=== PATIENT | female | born 1940 | race Caucasian/White ===

== ENCOUNTER → 2017-10-02 14:52 | Outpatient (CLI) | payer MEDICARE, SELFPAY | PROVIDERS: Family Provider Family Medicine; PCP Family Medicine; Visit Provider Family Medicine | DX: L97.309 Non-pressure chronic ulcer of unspecified ankle with unspecified severity (principal) | CPT/HCPCS: 87070; 87075; 87205 ==

== ENCOUNTER → 2017-10-02 15:50 | Outpatient (CLI) | payer MEDICARE, SELFPAY ==
[2017-10-02 17:05] LABS: Add Manual Diff / Slide Review NO; Basophils Percent Auto 0.6 % (0-2); Eosinophils Percent Auto 1.3 % (2-4); Hematocrit 34.8 % (36-46); Hemoglobin 11.6 g/dL (12.0-16.0); Lymphocytes Percent Auto 19.1 % (25-40); Mean Corpuscular HGB Conc 33.4 % (30-36); Mean Corpuscular Hemoglobin 29.9 PG (26-34); Mean Corpuscular Volume 89.6 fL (80-100); Monocytes Percent Auto 6.9 % (3-14); Neutrophils Absolute Auto 5500 /uL (3000-5900); Neutrophils Percent Auto 72.1 % (50-75); Platelet Count 217 X10^3/uL (150-400); Red Blood Cell Count 3.89 X10^6/uL (4.0-5.2); Red Cell Distribution Width 13.9 % (11.6-14.8); White Blood Cell Count 7.6 X10^3/uL (4.5-11.0)
[2017-10-02 17:13] LABS: Alanine Aminotransferase 27 IU/L (9-52); Albumin 4.1 g/dL (3.5-5.0); Albumin Globulin Ratio 1.4 (1.0-2.8); Alkaline Phosphatase 62 U/L (38-126); Aspartate Aminotransferase 21 IU/L (14-36); BUN Creatinine Ratio 10.8 (6-22); Bilirubin Total 0.4 mg/dL (0.2-1.3); Blood Urea Nitrogen 14 mg/dL (7-17); Calcium 9.4 mg/dL (8.4-10.2); Carbon Dioxide 29 mmol/L (22-32); Chloride 99 mmol/L (98-107); Estimated Glomerular Filt Rate 39.6 mL/min (>60); Globulin 2.9 g/dL (1.7-4.1); Glucose 114 mg/dL (80-110); HEMOLYSIS < 15 (0-50); Potassium 4.6 mmol/L (3.4-5.1); Sodium 137 mmol/L (137-145)
[2017-10-02 17:59] LABS: Thyroid Stimulating Hormone 1.41 uIU/mL (0.47-4.68)
== END ==
PROVIDERS: Family Provider Family Medicine; PCP Family Medicine; Visit Provider Family Medicine
DX: R60.9 Edema, unspecified (principal)
CPT/HCPCS: 36415; 80053; 84443; 85025; 87070; 87077; 87147; 87186; 87205

== ENCOUNTER → 2017-12-03 11:49 | Outpatient (CLI) | payer MEDICARE, SELFPAY ==
[2017-12-03 12:22] LABS: Add Manual Diff / Slide Review NO; Basophils Percent Auto 0.5 % (0-2); Lymphocytes Percent Auto 16.6 % (25-40); Mean Corpuscular HGB Conc 34.3 % (30-36); Mean Corpuscular Hemoglobin 29.8 PG (26-34); Mean Corpuscular Volume 86.9 fL (80-100); Monocytes Percent Auto 6.3 % (3-14); Neutrophils Absolute Auto 6100 /uL (3000-5900); Neutrophils Percent Auto 74.6 % (50-75); Platelet Count 219 X10^3/uL (150-400); Red Blood Cell Count 4.03 X10^6/uL (4.0-5.2); Red Cell Distribution Width 13.2 % (11.6-14.8); White Blood Cell Count 8.2 X10^3/uL (4.5-11.0)
[2017-12-03 12:27] LABS: Bacteria Urine None Seen
[2017-12-03 12:34] LABS: Alanine Aminotransferase 28 IU/L (9-52); Albumin 4.3 g/dL (3.5-5.0); Albumin Globulin Ratio 1.5 (1.0-2.8); Alkaline Phosphatase 52 U/L (38-126); Aspartate Aminotransferase 30 IU/L (14-36); Bilirubin Total 0.5 mg/dL (0.2-1.3); Blood Urea Nitrogen 21 mg/dL (7-17); Calcium 9.5 mg/dL (8.4-10.2); Carbon Dioxide 35 mmol/L (22-32); Chloride 93 mmol/L (98-107); Cholesterol 211 mg/dL (140-199); Estimated Glomerular Filt Rate 33.6 mL/min (>60); Globulin 2.8 g/dL (1.7-4.1); Glucose 91 mg/dL (80-110); HDL Cholesterol 48 mg/dL (40-60); HEMOLYSIS < 15 (0-50); LDL Cholesterol Calculated 129 mg/dL (<100); Potassium 4.2 mmol/L (3.4-5.1); Sodium 137 mmol/L (137-145); Total Protein 7.1 g/dL (6.3-8.2); Triglycerides 172 mg/dL (35-150)
[2017-12-03 12:38] LABS: Hemoglobin A1C% w Est Avg Glu 5.4 % (4.0-6.0)
[2017-12-03 12:40] LABS: Transferrin 242 mg/dL (206-381)
[2017-12-03 12:43] LABS: Appearance Urine UA CLEAR; Bilirubin Urine UA NEGATIVE (NEGATIVE); Color Urine UA YELLOW; Glucose Urine UA NEGATIVE (Normal); Ketones Urine UA NEGATIVE (NEGATIVE); Leukocyte Esterase Urine UA 2+ (NEGATIVE); Nitrite Urine UA Negative (Negative); Occult Blood Urine UA TRACE-INTACT (Negative); Protein Urine UA NEGATIVE (Negative); Specific Gravity Urine UA <=1.005 (1.000-1.035); Urobilinogen Urine UA 0.2 E.U./dL (0.2)
[2017-12-03 13:02] LABS: Culture Indicated Urine Specimen Cultured; RBC Urine None Seen (0-5/HPF); Squamous Epithelial Cell Urine 1-5 /HPF; WBC Urine 1-5/HPF (0-5/HPF)
[2017-12-03 13:03] LABS: Thyroid Stimulating Hormone 1.18 uIU/mL (0.47-4.68)
== END ==
PROVIDERS: Family Provider Family Medicine; PCP Family Medicine; Visit Provider Orthopaedic Surgery
DX: Z01.818 Encounter for other preprocedural examination (principal); I10 Essential (primary) hypertension; E78.5 Hyperlipidemia, unspecified
CPT/HCPCS: 36415; 80053; 80061; 81001; 83036; 84443; 84466; 85025; 87086; 93005; 93010

== ENCOUNTER 2017-12-13 14:10 | Inpatient (IN) | payer MEDICARE, SELFPAY ==
[2017-12-05 13:53] VITALS: BMI 27.0
[2017-12-12] VITALS (12 sets, daily range): BP systolic 132–213; BP diastolic 76–104; PULSE 65–101; RESP 14–21; TEMP 36.1–36.8; O2SAT 92–100; BMI 27.0
--- NOTE | 2017-12-12 07:08 | DI.RAD.S_ITS ---
PROCEDURE: XR KNEE RT 1TO2V INDICATIONS: prosthesis placement TECHNIQUE: 2 view(s) of the knee acquired. COMPARISON: None. FINDINGS: Bones: Patient is status post knee joint arthroplasty. Hardware components are in expected positions. Visualized bony structures are intact. Soft tissues: Overlying postoperative changes are noted. IMPRESSION: Expected postsurgical change for right knee arthroplasty. Dictated by: Mikki Alfonso MD, PhD on 12/12/2017 at 10:08 Approved by: Mikki Alfonso MD, PhD on 12/12/2017 at 10:09
[2017-12-12] MEDS: LACTATED RINGERS 1,000 ML 42 ML IV (07:30)
[2017-12-12] MEDS: ACETAMINOPHEN 325 MG TABLET 975 MG PO ×3 (07:43→21:30)
--- NOTE | 2017-12-12 07:49 | PM.PREOP ---
Pre-operative Note Interval Note Pre-op Check: Yes History & Physical Reviewed by Physician and Yes Exam Performed Changes: No
--- NOTE | 2017-12-12 07:51 | P.OP_ITS ---
Operative Date/Time/Diagnoses Date of procedure: 12/12/17 Time of procedure: 09:40 Pre-op diagnosis: Right total knee replacement Post-op diagnosis: same Procedure & Clinicians Procedure: Right total knee replacement Same procedure as scheduled: Yes Indications: The patient has had progressively worsening right knee pain with radiographic changes consistent with arthritis. Non-operative management has failed and the patient has requested total knee replacement. The risks, benefits and alternatives to surgery were discussed with the patient prior to proceeding. Risks discussed included, but were not limited to, failure to relieve pain, stiffness, infection, nerve damage, deep venous thrombosis, pulmonary embolism, stroke, coma, heart attack, permanent paralysis and , as well as the potential need for eventual revision of the prosthetic. Surgeon: Anand Melvin Grinder Machine Setter: Carolyne Dewey Click Yes if Unassisted: No Anesthesia Type: Spinal, Sedation and Local Operative Notes Findings: Significant tricompartmental osteoarthritis. Closure Type: primary Specimen(s): none sent Implants & Drains: Implants used in this procedure were manufactured by the [employer] and included the BCS II Journey total knee replacement with a size 5 right cobalt chromium femur, size 3 right non porous Journey tibial base plate, a 11 mm cross-linked polyethylene tibial insert and a 32 mm oval alfredo II patella. Applied: implant(s) Estimated Blood Loss (mL): 30 Blood products transfused: none Tourniquet time (min): 55 Procedure in detail: The patient was seen in the pre-operative area, where the patient identified the right knee as the operative site and this was marked with my initials. The patient received pre-operative antibiotics, and was taken to the operating room and placed on the operative table in the supine position. After satisfactory anesthesia, a brand marketing specialist out was performed. The right leg was encircled with a tourniquet about the proximal thigh, and the leg was prepared from the toes to the tourniquet with ChloroPrep in the usual fashion and draped through sterile drapes. The leg was elevated and exsanguinated with Eschmark bandage and the tourniquet inflated to 250 mmHg pressure. The knee was approached through an approximately 15 cm incision centered over the patella and carried into the knee through a medial parapatellar arthrotomy. The anterior osteophytes and soft tissues were removed. The rotational landmarks of July's line and the transepicondylar axis were marked on the femur with electrocautery, and intramedullary guide holes for the femur and tibia were created. The distal femoral cut was made in 6 degrees of valgus using the intramedullary guide at the primary cut setting. The proximal tibial cut was then made using the intramedullary guide, taking 9 mm of bone off the less involved side. The extension gap was checked and the rotation of the femoral component confirmed with the gap balancing system. The anterior, posterior and chamfer cuts were then made. The posterior osteophytes and soft tissues were then removed. The posterior capsule was injected with part of a mixture of 60 ml 0.25% Marcaine mixed with 20 ml Exparel and 4 mg of morphine for post-operative pain control. The remainder of this mixture was injected into the capsule and subcutaneous tissues during cement curing. The tibia was prepared with the rotation set by an extra medullary guide. Trial tibial and femoral components were then placed and the intercondylar notch cut through the femoral trial. Range of motion was 0-135 degrees, with good stability throughout the range. The patella was then cut to accommodate the patellar prosthetic. There was no need for a lateral release. The trials were then removed, and the femoral hole plugged with a bone plug. The bone was prepared with pulsatile lavage, and dried with a sponge. Cement was applied and the final prosthetics placed. Excess cement was removed during and after cement curing. After confirming there was no extruded cement posteriorly, the final tibial insert was placed. The knee was copiously irrigated and the tourniquet deflated. Hemostasis was obtained. The capsule was closed with interrupted # 2 polyester suture. The subcutaneous layer was closed with 3-0 Vicryl, and the skin with a running 3-0 V-Lock suture and SteriStrips. An Aquacel Ag dressing was applied and the patient was taken to recovery having tolerated the procedure well. Complications: none Condition: stable Disposition: PACU Plan for aftercare: The patient will be maintained on a standard total knee replacement protocol with weight bearing as tolerated. The patient will receive aspirin and sequential compression devices for DVT prophylaxis. The patient will be discharged home when safe for the home environment.
[2017-12-12] MEDS: CEFAZOLIN 2 GM/100 ML FROZ.PIGGY IV ×3 (08:00→23:19)
--- NOTE | 2017-12-12 08:05 | PC.NURSE ---
Day shift: Pt not on AC unit at this time. Will assess/chart when Pt arrives.
--- NOTE | 2017-12-12 08:33 | SUR.OPER ---
Supine on padded OR bed. Pillow under head, arms secured on padded armboards <90 degree abduction. Safety belt across torso. Non-operative leg secured with tape over blanket over lower leg. Operative leg secured in DeMayo positioner. Foam padded brace at thigh of operative leg.
[2017-12-12] MEDS: BUPIVACAINE LIPOSOME 266 MG/20 ML VIAL INJ (08:39)
[2017-12-12] MEDS: BUPIVACAINE 0.25% W/ EPI VIAL 50 ML INJ (08:39)
[2017-12-12] MEDS: MORPHINE 4 MG/ML INJ IV (08:40)
--- NOTE | 2017-12-12 10:50 | PC.NURSE ---
Day shift: Arrived on unit at approx 1030 from PACU. Oriented to room and call light. A7Ox3. Dressing CDI. SCD's applied. Ice bags on op-site. Admit done. Spouse in room for support. Call light in reach. Bed alarm on. Agrees to not get OOB w/o help from staff.
[2017-12-12] MEDS: METOPROLOL 50 MG TABLET PO ×2 (11:10→21:31)
[2017-12-12] MEDS: LACTATED RINGERS 1,000 ML 125 ML IV ×2 (11:11→21:34)
[2017-12-12] MEDS: OXYCODONE IR 5 MG TABLET 10 MG PO ×2 (11:51→12:15)
[2017-12-12] MEDS: HYDROMORPHONE 0.5 MG INJ IV ×3 (11:52→14:02)
[2017-12-12] MEDS: IBUPROFEN 600 MG TABLET PO (12:39)
[2017-12-12] MEDS: hydrOXYzine pamoate 25 MG CAPSULE PO (12:39)
--- NOTE | 2017-12-12 13:13 | PC.NURSE ---
Day shift: Pts having pain 8/10 post-op about 1 hour after arriving to this unit. Dr Melvin was called and Ro added. She had no PACU pain meds. HAve medicated per MAR with all available pain meds. electrical systems drafter aware of Pt's pain issues as well. Pt does have chronic pain and takes high amount of pain meds at home (per her spouse and her). Will continue to monitor. MD may need to be called. At this point pain is down to 6/10 but Pt is uncomfortable. Call light in reach and bed alarm is on. BP is elevated as well.
--- NOTE | 2017-12-12 14:36 | PC.NURSE ---
URINE RETENTION - assisted RN Mayra, pt is moaning from r knee discomfort and full bladder, b scan indicated >1000ml, inserted uriz, balloon inflated, cath secured, immediate return of pale, yellow urine.
[2017-12-12] MEDS: OXYCODONE IR 5 MG TABLET 20 MG PO ×2 (15:39→21:29)
--- NOTE | 2017-12-12 16:04 | PT.IPTN ---
Current Diagnoses Bilateral primary osteoarthritis of knee (12/12/17) Surgery Performed Operation Date: 12/12/17 07:45 Actual Procedures p Total Knee Arthroplasty(Right) - Anand Melvin MD Physical Therapy Treatment Note M3 PT-IP Subjective Start: 12/12/17 16:03 Freq: NEEDED Status: Active Protocol: Document 12/12/17 16:04 AB (Rec: 12/12/17 16:04 AB [id number]) Subjective Physical Therapy Visit Type Type Patient Refusal Notes checked on pt and pt refused PT stated that she does not want to move at this time. will check again tomorrow.
[2017-12-12] MEDS: ASPIRIN EC 81 MG TABLET PO (21:30)
[2017-12-12] MEDS: PANTOPRAZOLE 20 MG TABLET PO (21:30)
[2017-12-12] MEDS: FUROSEMIDE 40 MG TABLET PO (21:30)
[2017-12-12] MEDS: DOCUSATE 100 MG CAPSULE PO (21:30)
[2017-12-13] VITALS (7 sets, daily range): BP systolic 120–174; BP diastolic 68–94; PULSE 65–79; RESP 16–18; TEMP 36.3–36.7; O2SAT 94–100
[2017-12-13] MEDS: OXYCODONE IR 5 MG TABLET 10 MG PO (00:37)
[2017-12-13] MEDS: OXYCODONE IR 5 MG TABLET 20 MG PO ×3 (03:27→09:41)
[2017-12-13] MEDS: SODIUM CHLORIDE 0.9% FLUSH 10 ML IV ×3 (03:40→20:07)
[2017-12-13 05:28] LABS: Hematocrit 33.3 % (36-46); Hemoglobin 11.5 g/dL (12.0-16.0)
[2017-12-13] MEDS: IBUPROFEN 600 MG TABLET PO ×2 (07:55→14:22)
[2017-12-13] MEDS: hydrOXYzine pamoate 25 MG CAPSULE PO ×2 (07:56→16:12)
[2017-12-13] MEDS: ACETAMINOPHEN 325 MG TABLET 975 MG PO ×3 (07:57→20:05)
--- NOTE | 2017-12-13 08:10 | PC.NURSE ---
Shift summary: Awake and alert, oriented X3. C/O 09/07 pain in R operative knee, states did not get much relief from the Oxycodone she took at approx 0650. Medicated with Tylenol, Ibuprofen and 25 mg PO Vistaril. Ice packs on R knee. Cristian wrap and dressing to R knee C/D/I. Gauze dressing on R lower leg C/D/I (patient reports this is a chronic wound and that MD is aware). Circulation/sensation WNL, PP+, cap refill <2 sec. Lungs CTA, SpO2 on RA 93-94%. HRR. Encouraged coughing, deep breathing and ankle waves. SCD's in place. Land to gravity, urine clear yellow. IV saline locked on shift foreman. Encouraged to make needs known. Call light in reach, bed alarm on.
[2017-12-13] MEDS: PANTOPRAZOLE 20 MG TABLET PO ×2 (09:42→20:07)
[2017-12-13] MEDS: METOPROLOL 50 MG TABLET PO ×2 (09:42→20:07)
[2017-12-13] MEDS: DOCUSATE 100 MG CAPSULE PO ×2 (09:42→20:07)
[2017-12-13] MEDS: ASPIRIN EC 81 MG TABLET PO ×2 (09:42→20:12)
--- NOTE | 2017-12-13 10:20 | PM.PNPO.1 ---
Subjective Date Patient Seen: 12/13/17 Time Patient Seen: 10:20 Interval history: Patient is postop day 1. Status post right total knee arthroplasty by Dr. Melvin. Patient mentions that her blood pressure has been running high with blood pressure over 200 right before surgery. This morning a.m. blood pressure was 139/94 which is around the normal range for her. Has not been up with physical therapy yet. Complaining of a lot of pain in the right knee. Currently getting oxycodone 10 mg but it is not helping with the knee pain. She normally takes 10 mg of oxycodone at home. She also has a wound on her right lower leg above her ankle which has been slow to heal. She mentions that she is going to get an appointment with wound care when she gets home from the hospital. Her family physician is aware of her slow to heal right lower leg wound. Exam Vital Signs (past 8 hours): - 12/13/17 03:30 12/13/17 08:00 12/13/17 08:06 Temperature 97.6 F 98.1 F Pulse Rate 76 79 Respiratory Rate 16 18 Blood Pressure 174/90 H 139/94 H Pulse Oximetry 98 96 94 Oxygen Delivery Method Room Air Oxygen Flow Rate 0 Narrative Exam Narrative: Patient in bed. Alert and orient x3. Land in. Right knee dressing clean dry and intact with an Cristian bandage overwrap. Moderate swelling in right knee. Right lower leg above the ankle is wrapped with Curlex that is clean dry intact. 5/5 right ankle strength. Bilateral calves soft and nontender. Neurovascular status intact. Objective Labs Result Diagrams: 12/13/17 04:56 Labs: Laboratory Results - last 24 hr 12/13/17 04:56 Hgb 11.5 L Hct 33.3 L Assessment & Plan Post-op Postoperative Procedures Operation Date: 12/12/17 07:45 Actual Procedures Side Surgeon p Total Knee Arthroplasty Right Anand Melvin MD Postop day 1. Dilaudid 2 mg ordered for the patient for pain control. Patient ambulate with physical therapy today. DC Land 1 more mobile. DVT prophylaxis with aspirin and ambulation. Continue BP control with hypertensive medication. Anticipate discharge home the next day or 2 of medically stable and mobile.
--- NOTE | 2017-12-13 10:38 | PT.IIE ---
Current Diagnoses Bilateral primary osteoarthritis of knee (12/12/17) Surgery Performed Operation Date: 12/12/17 07:45 Actual Procedures p Total Knee Arthroplasty(Right) - Anand Melvin MD Surgical History (Last Updated 12/05/17 @ 14:21 by Zaria Stahl, RN) History of hand surgery (Acute) History of total right hip arthroplasty (Acute) Hx of tonsillectomy (Acute) Medical History (Last Updated 12/05/17 @ 14:22 by Zaria Stahl RN) Back pain (Acute) Cancer of left breast (Acute) Depression (emotion) (Acute) Edema of both lower extremities (Acute) GERD (gastroesophageal reflux disease) (Acute) HTN (hypertension) (Acute) History of hysterectomy (Acute) History of wound infection (Acute) Hyperlipidemia (Acute) Infection, kidney (Acute) Numbness and tingling of both feet (Acute) Physical Therapy Inpatient Evaluation/Re-Eval M1 PT/OT-IP Prior Functional Status Start: 12/12/17 16:03 Freq: NEEDED Status: Active Protocol: Document 12/13/17 10:38 AB (Rec: 12/13/17 12:46 AB [id number]) Medical Review Prior Functional Status Medical History Reviewed Yes Communication able to make needs known Mobility and Gait pt stated that she is modified independent with all mobilities and ambulation without AD but occasionally uses a hurrycane depending on level of body pain Social History Household Members spouse Living Arrangements Mobile home Number of Floors (Floors) One Floor Number of Stairs To Enter/Railing? 3 steps with bilateral rails Home Environment Standard Height Toilet Home Equipment Front Wheel Walker Shower Seat with Backrest Shower Seat without Backrest Grab Bars In Shower Employment Status Retired Additional Social History Comment pt has a hurrycane M2 PT-IP Current Condition Start: 12/12/17 16:03 Freq: NEEDED Status: Active Protocol: Document 12/13/17 10:38 AB (Rec: 12/13/17 12:46 AB [id number]) Physical Therapy Current Condition Current Condition Evaluation Date 12/13/17 Treatment Diagnosis s/p R TKA Onset Date 12/12/17 Weight Bearing Status Weight Bearing Status Weight Bear as Tolerated M3 PT-IP Subjective Start: 12/12/17 16:03 Freq: NEEDED Status: Active Protocol: Document 12/13/17 10:38 AB (Rec: 12/13/17 12:46 AB [id number]) Subjective Physical Therapy Visit Type Type Initial Evaluation Visit Start Time 10:38 Visit Stop Time 11:30 Total Visit Minutes 52 Number of DEVELOPMENT TEAM LEAD Visits 0 Physical Therapy Visit Comments Patient Comments pt initially refusing PT but agreed to get up when checked again Therapy Pain Assessment Pain When Pain Assessed At Rest Pain Present Pain Present Pain Reported Location Right Knee Intensity 6 Scale Used Numeric (1 - 10) Pain Behaviors Guarding Pain Management Techniques Apply Cold Timing of Activity with Medications M4 PT-IP Mobility and Gait Start: 12/12/17 16:03 Freq: NEEDED Status: Active Protocol: Document 12/13/17 10:38 AB (Rec: 12/13/17 12:46 AB [id number]) PT-Bed Mobility Assessment Supine to Sit Supine to Sit Maximum Assistance 1 Person Assistance Scooting Scooting to Edge of Bed Maximum Assistance PT-Transfer Assessment Sit to and From Stand Sit to and from Stand Moderate Assistance Equipment Transfer Assistive Device Gait Belt Front Wheeled Walker Orthotic/Prosthetic Devices or Brace: No Transfers Transfer Destination Chair Transfer Technique Stand Step Pivot Transfer Ability Level of Assist Maximum Assistance 1 Person Assistance Use of Upper Extremities Comments Mobility Comments pt unable to tolerate much activity. pt was able to take a few steps using FWW to get into the chair from bed but unable to ambulate farther. c /o dizziness after transfer. BP 150/95 PT-Balance Assessment Sitting Balance and Reactions Static Sitting Balance Ability Good Dynamic Sitting Balance Ability Good Standing Balance and Reactions Static Standing Balance Ability Fair Dynamic Standing Balance Ability Poor Device Used FWW M5 PT-IP Objective Assessments Start: 12/12/17 16:03 Freq: NEEDED Status: Active Protocol: Document 12/13/17 10:38 AB (Rec: 12/13/17 12:46 AB [id number]) Orientation Orientation/Cognition Level of Alertness Alert Orientation Name Age Birthday Month Date Year Day of Week Place Situation Safety Awareness Decreased Safety Awareness Gross Range of Motion Lower Extremity ROM Assessment Right Impaired Strength Lower Extremity Strength Assessment Right Impaired Knee 3+/5 Muscle Tone Muscle Tone WNL Yes M6 PT-IP Treatment Start: 12/12/17 16:03 Freq: NEEDED Status: Active Protocol: Document 12/13/17 10:38 AB (Rec: 12/13/17 12:46 AB [id number]) Physical Therapy Treatment Exercises Exercises Heel Slides Education Education Provided Precautions Weight Bearing Status Post-Op Packet Safety M7 PT-IP Assessment and Plan Start: 12/12/17 16:03 Freq: NEEDED Status: Active Protocol: Document 12/13/17 10:38 AB (Rec: 12/13/17 12:46 AB [id number]) PT Summary Assessment and Plan Potential Rehabilitation Potential Fair Status of Condition at Evaluation Evolving Summary Impairments Pain ROM Strength Balance Coordination Sensation Tone Cognition Bed Mobility Transfers Gait Activity Tolerance Assessment Summary pt requiring max A and max cues with all tasks. d/c plan depending on progress but pt wants to go home and spouse will assist her at home. will continue to assess. Goals Bed Mobility Goal Standby Assistance Transfer Goal Standby Assistance Gait Goal Standby Assistance Gait Distance 100 Other Goals up/down 3 steps using bilateral rails SBA Days to Meet Goals 3 Frequency of Treatment Frequency Of Treatment Twice a Day Treatment Plan Physical Therapy Treatment Plan Bed Mobility Training Transfer Training Gait Training Therapeutic Exercise Balance Retraining Post Op Education Discharge Planning Hot or Cold Pack Neuromuscular Re-ed Coordination Retraining Manual Therapy Other Recommendations and Next Treatment ambulation Focus Recommendations To Nursing Amount of Assist Needed 1 Person Assist Discharge Recommendations PT Discharge Recommendations Home with Assistance SNF Rehab Outpatient PT Other Discharge Recommendations SNF vs home with assist and outpt PT
--- NOTE | 2017-12-13 11:40 | CM.IDA ---
DCP Assessment Note: Pt is a 77 yo female, resident of [place]. Pt SDC, possibly inpt today for a scheduled knee surgery with Dr Melvin. Pt's PCP is Dr Osborn; Insurance is Medicare/[employer]P. Met w/pt and her spouse David, fairly briefly, yesterday, after pt had returned from the OR. Pt is POD#1 today. Pt and spouse expect pt to be able to return home upon DC, spouse and adult dtr able to assist as needed. Pt feels confident there will be no barriers to DC home. Reviewed chart, pt has refused PT thus far d/t pain. Following closely. Need to review PT note when eval is completed. DOUG Simons Discharge Planning/Care Management CM Discharge Assessment Start: 12/13/17 11:01 Freq: Status: Active Protocol: Document 12/13/17 11:01 YVONNE (Rec: 12/13/17 11:39 [id number]) Discharge Planning Assessment Assigned Forestry Laborer DOUG Carroll DPOA/Assigned Designee Name David Ruby, spouse Contact Information [phone] (cell) [phone] (home Advance Directives? No: Declines further information History Provided By Patient Significant Other Prior Living Arrangements Mobile home Household Members spouse Comment Adult dtr and grandchildren live near Independent with ADL's Yes Is patient alert and oriented? Yes Barriers to Discharge No Comment Home w/spouse and family to assist, r/o need for HH. Discharge Plan Home Transportation Arrangement Family Referrals Initiated None needed Additional Comment Unless needs or POC changes. Whiteboard Updated in Patient Room with Yes name and ext. # of Forestry Laborer Review Status In Process
[2017-12-13] MEDS: HYDROMORPHONE 2 MG TABLET PO ×2 (12:32→16:11)
--- NOTE | 2017-12-13 14:25 | PT.IPTN ---
Current Diagnoses Bilateral primary osteoarthritis of knee (12/12/17) Surgery Performed Operation Date: 12/12/17 07:45 Actual Procedures p Total Knee Arthroplasty(Right) - Anand Melvin MD Physical Therapy Treatment Note M2 PT-IP Current Condition Start: 12/12/17 16:03 Freq: NEEDED Status: Active Protocol: Document 12/13/17 10:38 AB (Rec: 12/13/17 12:46 AB [id number]) Physical Therapy Current Condition Current Condition Evaluation Date 12/13/17 Treatment Diagnosis s/p R TKA Onset Date 12/12/17 Weight Bearing Status Weight Bearing Status Weight Bear as Tolerated M3 PT-IP Subjective Start: 12/12/17 16:03 Freq: NEEDED Status: Active Protocol: Document 12/13/17 14:25 AB (Rec: 12/13/17 15:04 AB [id number]) Subjective Physical Therapy Visit Type Type Treatment Note Visit Start Time 14:25 Visit Stop Time 14:50 Total Visit Minutes 25 Number of CORE WINDER Visits 0 Physical Therapy Visit Comments Patient Comments pt agreeable to do PT Therapy Pain Assessment Pain When Pain Assessed At Rest Pain Present Pain Present Pain Reported Location Right Knee Scale Used pain scale not stated Pain Management Techniques Apply Cold Timing of Activity with Medications M4 PT-IP Mobility and Gait Start: 12/12/17 16:03 Freq: NEEDED Status: Active Protocol: Document 12/13/17 14:25 AB (Rec: 12/13/17 15:04 AB [id number]) PT-Bed Mobility Assessment Sit to Supine Sit to Supine Minimal Assistance Scooting Scooting to Edge of Bed Minimal Assistance Scooting Up and Down in Bed Minimal Assistance PT-Transfer Assessment Sit to and From Stand Sit to and from Stand Moderate Assistance Equipment Transfer Assistive Device Gait Belt Front Wheeled Walker Comments Mobility Comments pt requires cues with all mobilities. used safety belt to assist with elevating LLE up to bed. Gait Assessment Gait Gait Assistance Required: Moderate Assistance Distance (Feet) 20 Able to Maintain Weight Bearing Status Yes During Gait Assistive Devices Assistive Device Gait Belt Front Wheeled Walker Orthotic/Prosthetic Devices or Brace: No Gait Deviations General Gait Pattern Antalgic Decreased Stride Length Decreased Feet Clearance Factors Limiting Gait Function Factors Limiting Gait Function Decreased Activity Tolerance Decreased Strength Limited Range of Motion Pain Poor Balance Poor Safety Awareness Comments Gait Comments pt requested to go back to bed after ambulation and assisted back to bed. M5 PT-IP Objective Assessments Start: 12/12/17 16:03 Freq: NEEDED Status: Active Protocol: Document 12/13/17 10:38 AB (Rec: 12/13/17 12:46 AB [id number]) Orientation Orientation/Cognition Level of Alertness Alert Orientation Name Age Birthday Month Date Year Day of Week Place Situation Safety Awareness Decreased Safety Awareness Gross Range of Motion Lower Extremity ROM Assessment Right Impaired Strength Lower Extremity Strength Assessment Right Impaired Knee 3+/5 Muscle Tone Muscle Tone WNL Yes M6 PT-IP Treatment Start: 12/12/17 16:03 Freq: NEEDED Status: Active Protocol: Document 12/13/17 14:25 AB (Rec: 12/13/17 15:04 AB [id number]) Physical Therapy Treatment Education Education Provided Weight Bearing Status Safety M7 PT-IP Assessment and Plan Start: 12/12/17 16:03 Freq: NEEDED Status: Active Protocol: Document 12/13/17 14:25 AB (Rec: 12/13/17 15:04 AB [id number]) PT Summary Assessment and Plan Potential Rehabilitation Potential Good Summary Impairments Pain ROM Strength Balance Coordination Sensation Tone Cognition Bed Mobility Transfers Gait Activity Tolerance Progress Towards Goals Slow Progress due to Pain Slow Progress due to Activity Tolerance Assessment Summary pt improving slowly with mobility and requiring mod A with sit to stand but able to do some ambulation this afternoon and is steadier on her LE compared to this morning. pt will likely progress during hospital stay and d/c plan depending on progress level. caregiver training and stair climbing training will be conducted prior to d/c. Goals Bed Mobility Goal Standby Assistance Transfer Goal Standby Assistance Gait Goal Standby Assistance Gait Distance 100 Other Goals up/down 3 steps using bilateral rails SBA Days to Meet Goals 3 Frequency of Treatment Frequency Of Treatment Twice a Day Treatment Plan Physical Therapy Treatment Plan Bed Mobility Training Transfer Training Gait Training Therapeutic Exercise Balance Retraining Post Op Education Discharge Planning Hot or Cold Pack Neuromuscular Re-ed Coordination Retraining Manual Therapy Recommendations To Nursing Amount of Assist Needed 1 Person Assist Discharge Recommendations PT Discharge Recommendations Home with Assistance SNF Rehab Outpatient PT Other Discharge Recommendations SNF vs home with assist and outpt PT
[2017-12-13] MEDS: FUROSEMIDE 40 MG TABLET PO (20:07)
--- NOTE | 2017-12-13 23:00 | PC.NURSE ---
Pt complaint with nursing assessments. refusing turning. pt has open wound to right outer jackson, had bandage on is as pt stated the or required it to be covered during surgery. this was removed. yellow/puss had collected. cleaned with saline flush, betadine and finished with another saline flush then patted dry, left open to air. pt compliant. uses call light. given med per mar. will continue to monitor.
[2017-12-14 01:10] VITALS: BP 128/69; PULSE 61; RESP 16; TEMP 36; O2SAT 99
[2017-12-14] MEDS: HYDROMORPHONE 2 MG TABLET PO ×3 (01:23→08:19)
[2017-12-14 03:39] VITALS: BP 138/72; PULSE 68; RESP 16; TEMP 36.2; O2SAT 99
[2017-12-14] MEDS: IBUPROFEN 600 MG TABLET PO (06:07)
--- NOTE | 2017-12-14 06:18 | PC.NURSE ---
4057 Pt. refused to discontinue the ruiz catheter. States I'll wait until later on today to take the ruiz out. Will report to day RN.
[2017-12-14 07:55] VITALS: BP 123/68; PULSE 74; RESP 18; TEMP 36.4; O2SAT 98
[2017-12-14] MEDS: PANTOPRAZOLE 20 MG TABLET PO ×2 (08:18→20:43)
[2017-12-14] MEDS: ASPIRIN EC 81 MG TABLET PO ×2 (08:18→20:43)
[2017-12-14] MEDS: METOPROLOL 50 MG TABLET PO ×2 (08:18→20:43)
[2017-12-14] MEDS: DOCUSATE 100 MG CAPSULE PO ×2 (08:18→20:43)
[2017-12-14] MEDS: ACETAMINOPHEN 325 MG TABLET 975 MG PO ×3 (08:18→22:15)
[2017-12-14] MEDS: FUROSEMIDE 40 MG TABLET PO ×2 (08:18→20:43)
[2017-12-14] MEDS: SODIUM CHLORIDE 0.9% FLUSH 10 ML IV ×2 (08:19→20:43)
--- NOTE | 2017-12-14 08:20 | P.PN_ITS ---
Subjective Date Patient Seen: 12/14/17 Time Patient Seen: 08:19 Interval history: Pain is better but still having pain into the right knee. The best she has been is about 5/10 Exam Vital Signs (past 8 hours): - 12/14/17 01:10 12/14/17 03:39 Temperature 96.8 F L 97.1 F L Pulse Rate 61 68 Respiratory Rate 16 16 Blood Pressure 128/69 138/72 Pulse Oximetry 99 99 Oxygen Delivery Method Room Air Oxygen Flow Rate 0 Const Orientation: alert and oriented x3 Extrem Other: Right knee dressing clean dry intact. Soft calf, 1+ dorsalis pedis pulse , easily wiggles toes. Objective Labs Result Diagrams: 12/13/17 04:56 Assessment & Plan Post-op Postoperative Procedures Operation Date: 12/12/17 07:45 Actual Procedures Side Surgeon p Total Knee Arthroplasty Right Anand Melvin MD she is doing as expected after a right knee replacement. I reassured her that her pain levels are normal. We will continue to mobilize with physical therapy. Catheter will be removed this morning.
--- NOTE | 2017-12-14 09:26 | PC.NURSE ---
Addendum entered by Erika Canales R.N. 12/14/17 13:38: Medication placed in cactus with Kate HOWARD as a witness. pt provided vistaril this afternoon to help with pain control. Although states still 5/10, it does feel better. She is up in the chair. hourly rounding provided, call light within reach. Original Note: found 1 pill in pt's room on her bed this AM. She did not know what it was but thought it was possibly her water pill. Flight Communications Operator found a second pill of the same kind when cleaning her room this AM. Sent to pharmacy to ID and they are oxycodone 10mg tabs. However they do not match the kind that we supply in the hospital. Spoke with pt and explained that the pills were oxycodone but not the kind we supply in the hospital. She denied having any of her own medications here and stated that she was in so much pain yesterday that if she had any she would have taken them. Explained importance of pt not taking her own medications in addition to what we are prescribing to her here and she adamantly states she understands the problems and she would never take her own meds. States she doesn't have any here. Also states that if her were to find out she was taking additional pain meds he would be very angry. Told pt that I would have to destroy the medication, and she states that's fine since they are not hers.
[2017-12-14 11:38] VITALS: BP 122/73; PULSE 80; RESP 16; TEMP 36.1; O2SAT 98
[2017-12-14] MEDS: hydrOXYzine pamoate 25 MG CAPSULE PO (11:38)
--- NOTE | 2017-12-14 12:30 | PT.IPTN ---
Current Diagnoses Bilateral primary osteoarthritis of knee (12/12/17) Surgery Performed Operation Date: 12/12/17 07:45 Actual Procedures p Total Knee Arthroplasty(Right) - Anand Melvin MD Physical Therapy Treatment Note M2 PT-IP Current Condition Start: 12/12/17 16:03 Freq: NEEDED Status: Active Protocol: Document 12/13/17 10:38 AB (Rec: 12/13/17 12:46 AB [id number]) Physical Therapy Current Condition Current Condition Evaluation Date 12/13/17 Treatment Diagnosis s/p R TKA Onset Date 12/12/17 Weight Bearing Status Weight Bearing Status Weight Bear as Tolerated M3 PT-IP Subjective Start: 12/12/17 16:03 Freq: NEEDED Status: Active Protocol: Document 12/14/17 10:00 CLB (Rec: 12/14/17 12:30 CLB [id number]) Subjective Physical Therapy Visit Type Type Treatment Note Visit Start Time 10:00 Visit Stop Time 10:30 Total Visit Minutes 30 Number of NUCLEAR PHYSICS PROFESSOR Visits 1 Physical Therapy Visit Comments Patient Comments pt agreeable to do PT Therapy Pain Assessment Pain When Pain Assessed During Mobility Pain Present Pain Present Pain Reported Location Right Knee Intensity 7 Scale Used Numeric (1 - 10) Pain Behaviors Wincing Pain Management Techniques Apply Cold Timing of Activity with Medications M4 PT-IP Mobility and Gait Start: 12/12/17 16:03 Freq: NEEDED Status: Active Protocol: Document 12/14/17 10:00 CLB (Rec: 12/14/17 12:30 CLB [id number]) PT-Bed Mobility Assessment Supine to Sit Supine to Sit Contact Guard Assistance Head of Bed Elevated Scooting Scooting to Edge of Bed Standby Assistance PT-Transfer Assessment Sit to and From Stand Sit to and from Stand Contact Guard Assistance Use of Upper Extremities Equipment Transfer Assistive Device Gait Belt Front Wheeled Walker Orthotic/Prosthetic Devices or Brace: No Transfers Transfer Destination Chair Transfer Technique Stand Step Pivot Transfer Ability Level of Assist Contact Guard Assistance 1 Person Assistance Use of Upper Extremities Comments Mobility Comments Pt requiring less assist with all mobility. Pt used belt to assist LLE off bed. Gait Assessment Gait Gait Assistance Required: Contact Guard Assist Distance (Feet) 60 Able to Maintain Weight Bearing Status Yes During Gait Assistive Devices Assistive Device Gait Belt Front Wheeled Walker Orthotic/Prosthetic Devices or Brace: No Gait Deviations General Gait Pattern Antalgic Decreased Stride Length Decreased Feet Clearance Factors Limiting Gait Function Factors Limiting Gait Function Decreased Activity Tolerance Decreased Strength Limited Range of Motion Pain Poor Balance Poor Safety Awareness Comments Gait Comments Pt improving with ambulation while increasing distance and safety. M5 PT-IP Objective Assessments Start: 12/12/17 16:03 Freq: NEEDED Status: Active Protocol: Document 12/13/17 10:38 AB (Rec: 12/13/17 12:46 AB [id number]) Orientation Orientation/Cognition Level of Alertness Alert Orientation Name Age Birthday Month Date Year Day of Week Place Situation Safety Awareness Decreased Safety Awareness Gross Range of Motion Lower Extremity ROM Assessment Right Impaired Strength Lower Extremity Strength Assessment Right Impaired Knee 3+/5 Muscle Tone Muscle Tone WNL Yes M6 PT-IP Treatment Start: 12/12/17 16:03 Freq: NEEDED Status: Active Protocol: Document 12/14/17 10:00 CLB (Rec: 12/14/17 12:30 CLB [id number]) Physical Therapy Treatment Exercises Exercises Ankle Pumps Quad Sets Heel Slides Straight Leg Raises Short Arc Quads Education Education Provided Weight Bearing Status Post-Op Packet Safety M7 PT-IP Assessment and Plan Start: 12/12/17 16:03 Freq: NEEDED Status: Active Protocol: Document 12/14/17 10:00 CLB (Rec: 12/14/17 12:30 CLB [id number]) PT Summary Assessment and Plan Potential Rehabilitation Potential Good Status of Condition at Evaluation Evolving Summary Impairments Pain ROM Strength Balance Coordination Sensation Tone Cognition Bed Mobility Transfers Gait Activity Tolerance Progress Towards Goals Slow Progress due to Pain Slow Progress due to Activity Tolerance Assessment Summary pt improving with mobility and requiring less assist with sit to stand and able to increase ambulation. Pt will likely progress during hospital stay and d/c plan depending on progress level. caregiver training and stair climbing training will be conducted prior to d/c. Goals Bed Mobility Goal Standby Assistance Transfer Goal Standby Assistance Gait Goal Standby Assistance Gait Distance 100 Other Goals up/down 3 steps using bilateral rails SBA Days to Meet Goals 3 Frequency of Treatment Frequency Of Treatment Twice a Day Treatment Plan Physical Therapy Treatment Plan Bed Mobility Training Transfer Training Gait Training Therapeutic Exercise Balance Retraining Post Op Education Discharge Planning Hot or Cold Pack Neuromuscular Re-ed Coordination Retraining Manual Therapy Recommendations To Nursing Amount of Assist Needed 1 Person Assist Discharge Recommendations PT Discharge Recommendations Home with Assistance SNF Rehab Outpatient PT Other Discharge Recommendations SNF vs home with assist and outpt PT
--- NOTE | 2017-12-14 14:14 | PC.NURSE ---
Spoke with patient about oxycodone tabs that were found in her room and again asked if these were hers and if she had any of her home medications with her in the room. Pt denies having medications with her at her bedside and states oh no I wouldn't do that, I was told not to bring them. Asked patient to look in purse for medications, pt declined. Expressed the importance and reason for not taking her own medications in addition to what we are providing. Approximately 20 min after leaving the room, patient requested she speak to the charge nurse again. Upon entering the room patient had various home medications on her lap. She states let me show you all I have. Patient had various medications, no oxycodone. Pt agreeable to have this RN take these medications to the pharmacy to hold until discharge.
--- NOTE | 2017-12-14 16:33 | PT.IPTN ---
Current Diagnoses Bilateral primary osteoarthritis of knee (12/12/17) Surgery Performed Operation Date: 12/12/17 07:45 Actual Procedures p Total Knee Arthroplasty(Right) - Anand Melvin MD Physical Therapy Treatment Note M2 PT-IP Current Condition Start: 12/12/17 16:03 Freq: NEEDED Status: Active Protocol: Document 12/13/17 10:38 AB (Rec: 12/13/17 12:46 AB [id number]) Physical Therapy Current Condition Current Condition Evaluation Date 12/13/17 Treatment Diagnosis s/p R TKA Onset Date 12/12/17 Weight Bearing Status Weight Bearing Status Weight Bear as Tolerated M3 PT-IP Subjective Start: 12/12/17 16:03 Freq: NEEDED Status: Active Protocol: Document 12/14/17 14:35 CLB (Rec: 12/14/17 16:33 CLB [id number]) Subjective Physical Therapy Visit Type Type Treatment Note Visit Start Time 14:35 Visit Stop Time 15:10 Total Visit Minutes 35 Number of KETTLE CLEANER Visits 2 Physical Therapy Visit Comments Patient Comments Pt states she will not go to a SNF facility. Therapy Pain Assessment Pain When Pain Assessed During Mobility Pain Present Pain Present Pain Reported Location Right Knee Intensity 7 Scale Used Numeric (1 - 10) Pain Behaviors Wincing Pain Management Techniques Apply Cold Timing of Activity with Medications M4 PT-IP Mobility and Gait Start: 12/12/17 16:03 Freq: NEEDED Status: Active Protocol: Document 12/14/17 14:35 CLB (Rec: 12/14/17 16:33 CLB [id number]) PT-Bed Mobility Assessment Sit to Supine Sit to Supine Minimal Assistance Scooting Scooting Up and Down in Bed Standby Assistance PT-Transfer Assessment Sit to and From Stand Sit to and from Stand Minimal Assistance Use of Upper Extremities Equipment Transfer Assistive Device Gait Belt Front Wheeled Walker Orthotic/Prosthetic Devices or Brace: No Transfers Transfer Destination Bed Toilet Transfer Technique Stand Step Pivot Transfer Ability Level of Assist Minimal Assistance 1 Person Assistance Use of Upper Extremities Comments Mobility Comments Pt required increased assist with sit to stand from chair and toilet with cues for hand placement on wall rail. Gait Assessment Gait Gait Assistance Required: Contact Guard Assist Distance (Feet) 30 Able to Maintain Weight Bearing Status Yes During Gait Assistive Devices Assistive Device Gait Belt Front Wheeled Walker Orthotic/Prosthetic Devices or Brace: No Gait Deviations General Gait Pattern Antalgic Decreased Stride Length Decreased Feet Clearance Factors Limiting Gait Function Factors Limiting Gait Function Decreased Activity Tolerance Decreased Strength Limited Range of Motion Pain Poor Balance Poor Safety Awareness Comments Gait Comments Pt fatigued quickly this afternoon. M5 PT-IP Objective Assessments Start: 12/12/17 16:03 Freq: NEEDED Status: Active Protocol: Document 12/13/17 10:38 AB (Rec: 12/13/17 12:46 AB [id number]) Orientation Orientation/Cognition Level of Alertness Alert Orientation Name Age Birthday Month Date Year Day of Week Place Situation Safety Awareness Decreased Safety Awareness Gross Range of Motion Lower Extremity ROM Assessment Right Impaired Strength Lower Extremity Strength Assessment Right Impaired Knee 3+/5 Muscle Tone Muscle Tone WNL Yes M6 PT-IP Treatment Start: 12/12/17 16:03 Freq: NEEDED Status: Active Protocol: Document 12/14/17 14:35 CLB (Rec: 12/14/17 16:33 CLB [id number]) Physical Therapy Treatment Exercises Exercises Ankle Pumps Quad Sets Heel Slides Short Arc Quads Passive Knee Extension Hang Education Education Provided Weight Bearing Status Post-Op Packet Safety M7 PT-IP Assessment and Plan Start: 12/12/17 16:03 Freq: NEEDED Status: Active Protocol: Document 12/14/17 14:35 CLB (Rec: 12/14/17 16:33 CLB [id number]) PT Summary Assessment and Plan Potential Rehabilitation Potential Good Status of Condition at Evaluation Evolving Summary Impairments Pain ROM Strength Balance Coordination Sensation Tone Cognition Bed Mobility Transfers Gait Activity Tolerance Progress Towards Goals Slow Progress due to Pain Slow Progress due to Activity Tolerance Assessment Summary Pt fatigued quickly this afternoon and was unable to ambulate more than ~30ft. Pt had increased difficulty with ther ex and needed AAROM for SAQ and HS. Pt daughter Margie agreed to coming in tomorrow for CG training, she lives in [facility] and will assist pt for a few days after returning home. Pt progressing slowly and may need SNF rehab to increase strength and ROM before returning home. Goals Bed Mobility Goal Standby Assistance Transfer Goal Standby Assistance Gait Goal Standby Assistance Gait Distance 100 Other Goals up/down 3 steps using bilateral rails SBA Days to Meet Goals 3 Frequency of Treatment Frequency Of Treatment Twice a Day Treatment Plan Physical Therapy Treatment Plan Bed Mobility Training Transfer Training Gait Training Therapeutic Exercise Balance Retraining Post Op Education Discharge Planning Hot or Cold Pack Neuromuscular Re-ed Coordination Retraining Manual Therapy Other Recommendations and Next Treatment CG training with daughter Focus Margie(not sure what time she will be her tomorrow) ambulation and ther ex., stairs if going home. Recommendations To Nursing Amount of Assist Needed 1 Person Assist Discharge Recommendations PT Discharge Recommendations Home with Assistance SNF Rehab Outpatient PT Other Discharge Recommendations SNF vs home with assist and outpt PT
[2017-12-14 16:45] VITALS: BP 106/61; PULSE 79; RESP 16; TEMP 36.8; O2SAT 91
--- NOTE | 2017-12-14 17:27 | PC.NURSE ---
Addendum entered by Erika Moreno R.N. 12/14/17 22:49: pt has not asked for any narcotics this shift. Pt did get up to use BR, uses gait belt around foot and able to manipulate and move with that as a helping agent. Pt voided minimally. pt uses call light. pt left around 9, will continue to monitor pt for safety. Original Note: Addendum entered by Erika Moreno R.N. 12/14/17 19:24: Pt asleep, dozes off while talking to pt. given tylenol per MAR. will continue to monitor. Original Note: assumed care of pt from outgoing shift a 1500. pt asleep at this time, in room with pt. pt checked on, denies needs, bed alarm on, side rails upx3 will continue to monitor. 1700- tylenol administered while pt eating dinner. PT stated did not want anything except for tylenol. Pt stated food was pretty salty. Pt eating, encouraged oral fluids. pt has not yet voided since catheter out. Pt uses call light. bed alarm, on , side rails upx3 for safety. PT eating guest tray as well. will continue to monitor pt for safety.
[2017-12-14 19:55] VITALS: BP 107/57; PULSE 84; RESP 16; TEMP 36.7; O2SAT 98
[2017-12-15 01:20] VITALS: BP 131/62; PULSE 75; RESP 16; TEMP 36.3; O2SAT 99
--- NOTE | 2017-12-15 05:20 | PC.NURSE ---
assistant shift supervisor: 0510 Pt has been drowsy overnight, arouses briefly to voice/touch and will answer a few questions before she falls back to sleep. Pt has done the same when having vital signs taken and care done by HEAD FIELD HOCKEY COACH. Verbally denies pain and she appears comfortable. Dressing remains CDI.
[2017-12-15] MEDS: OXYCODONE IR 5 MG TABLET 20 MG PO (06:12)
[2017-12-15 08:15] VITALS: BP 143/72; PULSE 90; RESP 18; TEMP 36.9; O2SAT 98
[2017-12-15] MEDS: POTASSIUM CHLORIDE 20 MEQ TAB PO (08:22)
[2017-12-15] MEDS: IBUPROFEN 600 MG TABLET PO (08:22)
[2017-12-15] MEDS: POLYETHYLENE GLYCOL 3350 17 GM POWD.PACK PO (08:22)
[2017-12-15] MEDS: PANTOPRAZOLE 20 MG TABLET PO (08:23)
[2017-12-15] MEDS: ASPIRIN EC 81 MG TABLET PO (08:23)
[2017-12-15] MEDS: DOCUSATE 100 MG CAPSULE PO (08:23)
[2017-12-15] MEDS: METOPROLOL 50 MG TABLET PO (08:23)
[2017-12-15] MEDS: FUROSEMIDE 40 MG TABLET PO (08:23)
[2017-12-15] MEDS: SODIUM CHLORIDE 0.9% FLUSH 10 ML IV (08:23)
[2017-12-15] MEDS: ACETAMINOPHEN 325 MG TABLET 975 MG PO (08:23)
--- NOTE | 2017-12-15 08:53 | PT.IPTN ---
Current Diagnoses Bilateral primary osteoarthritis of knee (12/12/17) Surgery Performed Operation Date: 12/12/17 07:45 Actual Procedures p Total Knee Arthroplasty(Right) - Anand Melvin MD Physical Therapy Treatment Note Physical Therapy Visit Type Type Patient Refusal Physical Therapy Visit Comments Patient Comments Pt still eating breakfast, doesn't want to work with PT right now.
[2017-12-15 11:30] VITALS: BP 109/58; PULSE 75; RESP 18; TEMP 36.2; O2SAT 99
--- NOTE | 2017-12-15 12:05 | PM.DS.1 ---
History of Present Illness Date Patient Seen: 12/15/17 Time Patient Seen: 07:23 Chief complaint: 15735 RIGHT TOTAL KNEE ARTHROPLASTY Narrative: Patient states her pain is mild. Denies fever chills. No nausea vomiting. She has been up to use the bathroom with 1 person assist. Patient states her is home to assist her. Patient states she is ready for discharge home if safe to do so. Discharge Providers Date of admission: 12/12/17 05:50 Primary care physician: Yosef Osborn MD Consults: 12/12/17 10:33 Consult to Discharge Planning Routine Comment: Consult to Physical Therapy Evaluate & Treat Comment: Physician Instructions: postop TKA protocol Discharge provider: Mulugeta Reyes PA-C Summary Discharge Diagnosis: Status post right total knee replacement Hospital Course: Patient admitted to the hospital for right total knee arthroplasty. Patient failed outpatient treatment for progressively worsening right knee pain with radiographic changes consistent with severe osteoarthritis. Patient consented for right total knee arthroplasty. Patient taken to the operating room underwent right total knee arthroplasty. Patient back in her recover well and is in stable condition. Patient has seemed over the sedated by the nurse. The nurse states she found 1 oxycodone tablet in her room yesterday. Apparently physical therapy found 1 oxycodone tablets yesterday as well. Patient has been has admittedly been bringing an outside oxycodone to treat her for pain. Status at Discharge Functional status at discharge: uses cane/walker Overall status at discharge: patient is progressing back to baseline Exam Vital Signs (past 8 hours): - 12/15/17 08:15 12/15/17 11:30 Temperature 98.5 F 97.2 F L Pulse Rate 90 75 Respiratory Rate 18 18 Blood Pressure 143/72 H 109/58 L Pulse Oximetry 98 99 Oxygen Delivery Method Room Air Oxygen Flow Rate 0 Narrative Exam Narrative: 77-year-old female in no apparent distress. right knee dressing is clean, dry and intact. Motor functions intact distal right lower extremity. The leg is warm and dry. Sensation grossly intact to light touch. Objective Labs Result Diagrams: 12/13/17 04:56 Discharge Plan Discharge Plan Patient Disposition: Home Discharge comment: DC home today after PT Discharge Med Rec/Prescriptions Prescriptions: New oxycodone 5 mg tablet 5 mg PO Q4-6H PRN (Reason: pain) Qty: 40 RF: 0 hydroxyzine pamoate [Vistaril] 25 mg capsule 25 mg PO Q6-8H PRN (Reason: nausea and vomiting) Qty: 30 RF: 0 Continue omeprazole 20 mg Tablet,Delayed Release (Dr/Ec) 20 mg PO BID Qty: 0 RF: 0 metoprolol tartrate 50 MG tablet 50 mg PO BID Qty: 180 RF: 3 potassium chloride 20 mEq tablet extended release 20 meq PO DAILY PRN (Reason: edema) Qty: 60 RF: 5 furosemide [Lasix] 40 mg tablet 40 mg PO BID RF: 0 vitamin B complex Capsule 1 cap PO DAILY RF: 0 quinine sulfate [Qualaquin] 324 MG capsule 300 mg PO BEDTIME RF: 0 Miralax 17 gm PO QDAY PRN (Reason: Constipation) Qty: 0 RF: 0 aspirin [Aspir-81] 81 mg Tablet,Delayed Release (Dr/Ec) 2 tab PO DAILY RF: 0 Discontinued oxycodone 10 mg tablet 2 tab PO Q6H PRN (Reason: pain) RF: 0 No Action Geritol liquid 1 dose PO DAILY RF: 0 bisacodyl 5 mg Tablet,Delayed Release (Dr/Ec) 5 mg PO Q6H PRN (Reason: Constipation) RF: 0 Follow up/Referrals: Yosef Osborn MD [Primary Care Provider] - Anand Melvin MD [Physician] - (SNO in 5-7 days) Provider Discharge Instructions Diet: Diet as Tolerated Activity: WBAT Cold/Heat Therapy: Ice as needed Other treatments: Aspirin 81 mg twice per day, Tylenol 1000 mg three times per day Skin/Wound/Dressing Care Report to your healthcare provider any signs of infection, such as:: chills, fever, night sweats, increased pain and unusual drainage Dressing: Keep dressing clean and dry Discharge Data Primary Care Provider: Yosef Osborn Attending Provider: Anand Melvin Admit Date/Time: 12/12/17 05:50 Quality VTE Deep Vein Thrombosis/Pulmonary Embolism Present on Admission: No
--- NOTE | 2017-12-15 12:48 | PT.IPTN ---
Current Diagnoses Bilateral primary osteoarthritis of knee (12/12/17) Surgery Performed Operation Date: 12/12/17 07:45 Actual Procedures p Total Knee Arthroplasty(Right) - Anand Melvin MD Physical Therapy Treatment Note Physical Therapy Current Condition Current Condition Evaluation Date 12/13/17 Treatment Diagnosis s/p R TKA Onset Date 12/12/17 Weight Bearing Status Weight Bearing Status Weight Bear as Tolerated Subjective Physical Therapy Visit Type Type Treatment Note Visit Start Time 12:03 Visit Stop Time 12:41 Total Visit Minutes 38 Physical Therapy Visit Comments Patient Comments Pt ready to go home, nervous about doing her stairs. Patient Goals go home today Therapy Pain Assessment Pain When Pain Assessed At Rest Pain Present Pain Present Pain Reported PT-Transfer Assessment Sit to and From Stand Sit to and from Stand Contact Guard Assistance Equipment Transfer Assistive Device Gait Belt Front Wheeled Walker Transfers Transfer Destination Chair Wheelchair Transfer Technique walked between destinations Gait Assessment Gait Gait Assistance Required: Standby Assistance Distance (Feet) 20 Assistive Devices Assistive Device Gait Belt Front Wheeled Walker Stair Climbing Assessment Evaluation Level of Assist On Stairs Contact Guard Assistance Devices Stair Climbing Assistive Devices Left Railing Right Railing Technique/Endurance Stair Climbing Direction Ascend and Descend Stair Climbing Technique Step to Step Number of Steps Climbed 3 Query Text: Stair Climbing Set # Repetitions (reps) 1 Comments Stair Climbing Comments ABle to utilize step-to pattern for both directions on stairs, needed cues for technique which the daughter was able to provide. Orientation Orientation/Cognition Level of Alertness Alert Orientation Name Age Birthday Month Date Year Day of Week Place Situation Safety Awareness Decreased Safety Awareness Gross Range of Motion Lower Extremity ROM Assessment Right Impaired Strength Lower Extremity Strength Assessment Right Impaired Knee 3+/5 Muscle Tone Muscle Tone WNL Yes Physical Therapy Treatment Exercises Exercises Ankle Pumps Quad Sets Heel Slides Short Arc Quads Passive Knee Extension Hang Education Education Provided Weight Bearing Status Post-Op Packet Safety PT Summary Assessment and Plan Summary Assessment Summary Pt discharging home later today. Caregiver training completed. [place] noting is that when pt stood up from the chair at beginning of session , 3 small white pills fell out of pt's lap. Pt picked them up herself and gave them to her daughter saying they're yours anyway. RN was notified after session. Pt is safe to discharge home today with assist from daughter. OPPT to start in 2 days. Acute PT will sign off. Frequency of Treatment Frequency Of Treatment Discharge
--- NOTE | 2017-12-15 13:17 | PC.NURSE ---
discharge pt states her pain is fine this AM. Requests only ibuprofen and no pain meds at all this shift. went to assess pt after ibuprofen and she was in chair nodding off with her head bobbing. PT informed me that when she was working with pt for the second time today, 3 pills fell off her lap when she got up from the chair. d/c instructions provided to pt and her daughter. Pt states she has f/u apt made with Dr Melvin and out pt PT set up as well. notified to contact MD for any questions or concerns. Vistaril Rx sent electronically and paper Rx for oxy given to pt. PIV removed. Waiting for pt's to arrive to take pt home.
== END 2017-12-15 15:30 | disposition home or self-care (01) | DRG 470 ==
LOC: AC 12-15 12:31 → OR 12-16 09:10 → AC 12-16 09:13
PROVIDERS: Admitting Provider Orthopaedic Surgery; Family Provider Family Medicine; PCP Family Medicine; Visit Provider Orthopaedic Surgery
PROC: 0SRC0JZ Replacement of Right Knee Joint with Synthetic Substitute, Open Approach (ICD-10-PCS; CPT 27447; principal; 2017-12-12 07:45)
DX: M17.11 Unilateral primary osteoarthritis, right knee (principal); Z96.641 Presence of right artificial hip joint; E78.5 Hyperlipidemia, unspecified; I10 Essential (primary) hypertension
CPT/HCPCS: 36415; 73560; 85014; 85018; 93005; 97110; 97116; 97162; 97530; C1776; C9290; J0690; J1170; J2250; J2270; J2704; J3010

== ENCOUNTER → 2018-02-23 15:05 | Outpatient (CLI) | payer MEDICARE, SELFPAY ==
[2017-12-12 10:38] VITALS: BMI 27.0
[2018-02-23 15:36] LABS: Add Manual Diff / Slide Review NO; Basophils Percent Auto 1.5 % (0-2); Eosinophils Percent Auto 2.8 % (2-4); Hematocrit 31.3 % (36-46); Hemoglobin 10.6 g/dL (12.0-16.0); Lymphocytes Percent Auto 16.4 % (25-40); Mean Corpuscular HGB Conc 33.9 % (30-36); Mean Corpuscular Hemoglobin 29.4 PG (26-34); Mean Corpuscular Volume 86.7 fL (80-100); Monocytes Percent Auto 7.7 % (3-14); Neutrophils Absolute Auto 4700 /uL (3000-5900); Neutrophils Percent Auto 71.6 % (50-75); Platelet Count 283 X10^3/uL (150-400); Red Blood Cell Count 3.61 X10^6/uL (4.0-5.2); Red Cell Distribution Width 14.8 % (11.6-14.8); White Blood Cell Count 6.6 X10^3/uL (4.5-11.0)
[2018-02-23 16:12] LABS: Alanine Aminotransferase 26 IU/L (9-52); Albumin 3.8 g/dL (3.5-5.0); Albumin Globulin Ratio 1.5 (1.0-2.8); Alkaline Phosphatase 68 U/L (38-126); Aspartate Aminotransferase 22 IU/L (14-36); BUN Creatinine Ratio 14.6 (6-22); Bilirubin Total 0.4 mg/dL (0.2-1.3); Blood Urea Nitrogen 19 mg/dL (7-17); Carbon Dioxide 35 mmol/L (22-32); Chloride 92 mmol/L (98-107); Estimated Glomerular Filt Rate 39.6 mL/min (>60); Globulin 2.5 g/dL (1.7-4.1); Glucose 92 mg/dL (80-110); HEMOLYSIS < 15 (0-50); Magnesium 1.3 mg/dL (1.6-2.3); Potassium 4.6 mmol/L (3.4-5.1); Sodium 138 mmol/L (137-145); Total Protein 6.3 g/dL (6.3-8.2)
[2018-02-23 16:41] LABS: Thyroid Stimulating Hormone 1.83 uIU/mL (0.47-4.68)
[2018-02-23 20:31] LABS: Vitamin B12 852 pg/mL (239-931)
== END ==
PROVIDERS: Family Provider Family Medicine; PCP Family Medicine; Visit Provider Family Medicine
DX: R60.9 Edema, unspecified (principal)
CPT/HCPCS: 36415; 80053; 82607; 83735; 83880; 84443; 85025

== ENCOUNTER → 2018-03-27 14:00 | Outpatient (CLI) | payer MEDICARE, SELFPAY ==
[2017-12-12 10:38] VITALS: BMI 27.0
--- NOTE | 2018-03-27 14:03 | DI.ECHO.S_ITS ---
[facility] +---------+ : : [address] : [place] : : : : [id number] : : : : Phone: [phone]+ Echocardiogram Report + + :Name: NAYELY FORTUNE Study Date: 03/27/2018 Height: 62 in : :[facility] Weight: 150 lb : : Gender: Female BSA: 1.7 m2 : :: 1940 Age: 78 yrs BP: 114/60 mmHg: :Reason For Study: Edema : : Performed By: Rama De Leon : :Referring: ANITHA CANALES : + + Interpretation Summary Normal left ventricle size with ejection fraction 60-65%. Grade I diastolic dysfunction. Mildly dilated left atrium. Mild aortic valve sclerosis. No valvular regurgitation. Mildly enlarged ascending aorta. Procedure: A two-dimensional transthoracic echocardiogram with color flow and Doppler was performed. The study quality was technically adequate. There is no prior echocardiogram noted for this patient. The patient was in normal sinus rhythm during the exam. Left Ventricle: The left ventricle is normal in size. There is normal left ventricular wall thickness. The ejection fraction is estimated to be 60-65%. There are no focal wall motion abnormalities. Diastolic parameters suggest a relaxation abnormality of the left ventricle, consistent with probable normal filling pressures. Right Ventricle: The right ventricle grossly appears normal in size with probable normal systolic function. Atria: The left atrium is mildly dilated. Right atrial size is normal. The interatrial septum is intact with no evidence for an atrial septal defect. Mitral Valve: The mitral valve is normal in structure and function. There is no mitral regurgitation noted. Aortic Valve: The aortic valve opens well. There is mild aortic valve sclerosis. There is trace aortic regurgitation. Tricuspid Valve: The tricuspid valve is normal in structure and function. There is trace tricuspid regurgitation. The right ventricular systolic pressure is estimated to be at least 20 mmHg based on an estimated right atrial pressure of 3 mm Hg. Pulmonic Valve: The pulmonic valve is not well seen, but is grossly normal. There is trace pulmonic regurgitation. Great Vessels: The aortic root is normal size. The ascending aorta is mildly enlarged. The IVC is of normal diameter and collapses greater than 50% with a sniff. This suggests a low right atrial pressure of 3 mm Hg. Pericardium/ Pleura There is no pericardial effusion. There is no pleural effusion. MMode/2D Measurements & Calculations LVIDd: 4.6 cm Ao root diam: 3.4 cm LVIDs: 3.0 cm Aortic Jxn: 2.8 cm FS: 34.1 % asc Aorta Diam: 3.9 cm EPSS: 0.36 cm Ao Arch Diam (Prox Trans): 2.9 cm IVSd: 0.92 cm LVPWd: 0.68 cm LV walton. diameter/BSA (cm/m^2): 2.7 LV sys. diameter/BSA (cm/m^2): 1.8 LA dimension: 4.1 cm RA long axis: 4.4 cm LA A2 area: 20.3 cm2 RA area: 11.9 cm2 LA A4 area: 20.0 cm2 RA vol: 27.3 ml LA length (vol): 5.3 cm RA : 16.2 ml/m2 LA vol: 65.6 ml RVDd major: 4.5 cm LA vol index: 38.8 ml/m2 RVD1 (basal): 2.9 cm RVD2 (mid): 2.6 cm Doppler Measurements & Calculations Ao V2 max: 143.8 cm/sec MV E max sukhjinder: 62.1 cm/sec Ao V2 mean: 110.5 cm/sec MV A max sukhjinder: 74.8 cm/sec Ao max P.3 mmHg MV E/A: 0.83 Ao mean P.3 mmHg Med Peak E' Sukhjinder: 4.9 cm/sec Ao V2 VTI: 31.9 cm E/E' med: 12.6 Lat Peak E' Sukhjinder: 9.3 cm/sec E/E' lat: 6.7 E/e' average: 9.6 MV dec time: 0.21 sec MV P1/2t: 62.8 msec TR max sukhjinder: 206.5 cm/sec MV P1/2t max sukhjinder: 63.1 cm/sec TR max P.1 mmHg MVA(P1/2t): 3.5 cm2 PA V2 max: 113.8 cm/sec PA V2 mean: 75.0 cm/sec PA mean P.6 mmHg PA Accel Time: 0.14 sec Electronically signed by: Liza Jimenez on Reading Physician:03/27/2018 03:55 PM
== END ==
PROVIDERS: PCP Family Medicine; Visit Provider Family Medicine
DX: I35.8 Other nonrheumatic aortic valve disorders (principal); I77.810 Thoracic aortic ectasia; R60.9 Edema, unspecified
CPT/HCPCS: 93306

== ENCOUNTER → 2018-04-22 15:25 | Outpatient (CLI) | payer MEDICARE, SELFPAY ==
[2017-12-12 10:38] VITALS: BMI 27.0
--- NOTE | 2018-04-22 15:28 | DI.RAD.S_ITS ---
PROCEDURE: XR TIBIA FUBULA RT 2V INDICATIONS: pain TECHNIQUE: 2 views of the tibia and fibula were acquired. COMPARISON: [facility], CR, XR KNEE RT 1TO2V, 12/12/2017, 9:56. FINDINGS: Bones: No fractures or dislocations. No suspicious bony lesions. Normal-appearing prior right total knee arthroplasty. Soft tissues: No suspicious soft tissue calcifications or masses. IMPRESSION: Prior total knee arthroplasty partially visualized, no source of pain below this level is found. No intervening trauma suspected. Dictated by: Anish Hammond M.D. on 04/22/2018 at 16:37 Approved by: Anish Hammond M.D. on 04/22/2018 at 16:39
[2018-04-22 16:08] LABS: Add Manual Diff / Slide Review NO; Basophils Absolute Auto 0 /uL (0-100); Basophils Percent Auto 0.3 % (0-2); Eosinophils Absolute Auto 0 /uL (0-450); Eosinophils Percent Auto 0.1 % (2-4); Hematocrit 32.8 % (36-46); Lymphocytes Absolute Auto 500 /uL (1100-4500); Lymphocytes Percent Auto 4.4 % (25-40); Mean Corpuscular HGB Conc 33.4 % (30-36); Mean Corpuscular Hemoglobin 27.8 PG (26-34); Mean Corpuscular Volume 83.1 fL (80-100); Monocytes Absolute Auto 400 /uL (0-900); Monocytes Percent Auto 3.2 % (3-14); Neutrophils Absolute Auto 11200 /uL (1500-7000); Platelet Count 164 X10^3/uL (150-400); Red Blood Cell Count 3.95 X10^6/uL (4.0-5.2); Red Cell Distribution Width 13.3 % (11.6-14.8); White Blood Cell Count 12.1 X10^3/uL (4.5-11.0)
[2018-04-22 16:23] LABS: Alanine Aminotransferase 29 IU/L (9-52); Albumin 4.4 g/dL (3.5-5.0); Albumin Globulin Ratio 1.5 (1.0-2.8); Alkaline Phosphatase 63 U/L (38-126); Aspartate Aminotransferase 47 IU/L (14-36); Bilirubin Total 0.9 mg/dL (0.2-1.3); C-Reactive Protein Quant 3.8 mg/dL (<1.0); Calcium 9.7 mg/dL (8.4-10.2); Carbon Dioxide 26 mmol/L (22-32); Chloride 89 mmol/L (98-107); Estimated Glomerular Filt Rate 6.6 mL/min (>60); Glucose 161 mg/dL (80-110); HEMOLYSIS < 15 (0-50); Magnesium 1.9 mg/dL (1.6-2.3); Potassium 4.4 mmol/L (3.4-5.1); Sodium 136 mmol/L (137-145); Total Protein 7.4 g/dL (6.3-8.2)
[2018-04-22 16:30] LABS: Erythrocyte Sedimentation Rate 72 MM/HR (0-20)
[2018-04-22 16:33] LABS: BUN Creatinine Ratio 23.9 (6-22)
[2018-04-22 16:35] LABS: Blood Urea Nitrogen 146 mg/dL (7-17)
== END ==
PROVIDERS: PCP Family Medicine; Visit Provider Family Medicine
DX: M25.579 Pain in unspecified ankle and joints of unspecified foot (principal); R60.9 Edema, unspecified
CPT/HCPCS: 36415; 73590; 80053; 83735; 84443; 85025; 85651; 86140

== ENCOUNTER → 2018-04-22 15:41 | Outpatient (CLI) | payer MEDICARE, SELFPAY ==
[2017-12-12 10:38] VITALS: BMI 27.0
== END ==
PROVIDERS: PCP Family Medicine; Visit Provider Family Medicine
DX: M79.661 Pain in right lower leg (principal)

== ENCOUNTER → 2018-06-24 14:44 | Outpatient (CLI) | payer MEDICARE, SELFPAY ==
[2018-05-04 11:42] VITALS: BMI 27.0
[2018-06-24 15:14] LABS: Add Manual Diff / Slide Review NO; Basophils Absolute Auto 100 /uL (0-100); Eosinophils Absolute Auto 300 /uL (0-450); Eosinophils Percent Auto 4.4 % (2-4); Hematocrit 25.9 % (36-46); Hemoglobin 8.6 g/dL (12.0-16.0); Lymphocytes Absolute Auto 1000 /uL (1100-4500); Lymphocytes Percent Auto 14.2 % (25-40); Mean Corpuscular HGB Conc 33.1 % (30-36); Mean Corpuscular Hemoglobin 28.2 PG (26-34); Mean Corpuscular Volume 85.2 fL (80-100); Monocytes Absolute Auto 500 /uL (0-900); Monocytes Percent Auto 7.3 % (3-14); Neutrophils Absolute Auto 4900 /uL (1500-7000); Neutrophils Percent Auto 73.1 % (50-75); Platelet Count 235 X10^3/uL (150-400); Red Blood Cell Count 3.04 X10^6/uL (4.0-5.2); Red Cell Distribution Width 16.1 % (11.6-14.8); White Blood Cell Count 6.7 X10^3/uL (4.5-11.0)
[2018-06-24 15:32] LABS: Blood Urea Nitrogen 21 mg/dL (7-17); Calcium 8.7 mg/dL (8.4-10.2); Carbon Dioxide 29 mmol/L (22-32); Chloride 97 mmol/L (98-107); Estimated Glomerular Filt Rate 33.5 mL/min (>60); Glucose 100 mg/dL (80-110); HEMOLYSIS < 15 (0-50); Magnesium 2.3 mg/dL (1.6-2.3); Potassium 4.5 mmol/L (3.4-5.1); Sodium 134 mmol/L (137-145)
== END ==
PROVIDERS: PCP Family Medicine; Visit Provider Family Medicine
DX: I10 Essential (primary) hypertension (principal)
CPT/HCPCS: 36415; 80048; 83735; 85025

== ENCOUNTER → 2018-06-29 14:00 | Outpatient (CLI) | payer MEDICARE, SELFPAY ==
[2018-05-04 11:42] VITALS: BMI 27.0
--- NOTE | 2018-06-29 14:04 | DI.US.S_ITS ---
PROCEDURE: US ARTERIAL DUPLEX LE BI INDICATIONS: arterial insufficiency, edema TECHNIQUE: Color and pulse Doppler interrogation was performed of both lower extremity arterial systems, with image documentation. COMPARISON: [facility], , US ARTERIAL LOWER EXTREMITY DOPPLER RIGHT, 04/27/2018, 18:53. FINDINGS: Right lower extremity: Common femoral artery: 102 cm/sec, with triphasic flow. Deep femoral artery: 80 cm/sec, with triphasic flow. Proximal superficial femoral artery: 46 cm/sec, with triphasic flow. Mid superficial femoral artery: 28 cm/sec, with triphasic flow. Distal superficial femoral artery: 84 cm/sec, with monophasic flow. Popliteal artery: 80 cm/sec, with monophasic flow. Posterior tibial artery: 34 cm/sec, with monophasic flow. Anterior tibial artery/dorsalis pedis: 41 cm/sec, with monophasic flow. Willoughby-scale imaging description: Collateral artery at the superficial femoral artery in the midportion Left lower extremity: Common femoral artery: 110 cm/sec, with triphasic flow. Deep femoral artery: 61 cm/sec, with triphasic flow. Proximal superficial femoral artery: 87 cm/sec, with triphasic flow. Mid superficial femoral artery: 91 cm/sec, with triphasic flow. Distal superficial femoral artery: 109 cm/sec, with triphasic flow. Popliteal artery: 311 cm/sec, with monophasic flow. Posterior tibial artery: 86 cm/sec, with monophasic flow. Anterior tibial artery/dorsalis pedis: 48 cm/sec, with monophasic flow. Willoughby-scale imaging description: Left popliteal fossa Lilly's cyst versus hematoma measuring 51 mm. IMPRESSION: 1. Bilateral outflow stenoses. These lesions may be amenable to percutaneous endovascular therapy. Interventional radiology consultation recommended. 2. Left-sided Lilly's cyst versus hematoma in the popliteal fossa. Dictated by: Everardo Cabrera M.D. on 06/29/2018 at 16:11 Approved by: Everardo Cabrera M.D. on 06/29/2018 at 16:20
== END ==
PROVIDERS: PCP Family Medicine; Visit Provider Family Medicine
DX: I77.1 Stricture of artery (principal); R60.9 Edema, unspecified; I70.203 Unspecified atherosclerosis of native arteries of extremities, bilateral legs
CPT/HCPCS: 93925

== ENCOUNTER → 2018-07-28 15:24 | Outpatient (CLI) | payer MEDICARE, SELFPAY ==
[2018-05-04 11:42] VITALS: BMI 27.0
[2018-07-28 17:44] LABS: BUN Creatinine Ratio 14.1 (6-22); Blood Urea Nitrogen 41 mg/dL (7-17); Calcium 8.7 mg/dL (8.4-10.2); Carbon Dioxide 36 mmol/L (22-32); Chloride 84 mmol/L (98-107); Estimated Glomerular Filt Rate 15.7 mL/min (>60); Glucose 98 mg/dL (80-110); HEMOLYSIS < 15 (0-50); Magnesium 1.9 mg/dL (1.6-2.3); Potassium 3.5 mmol/L (3.4-5.1); Sodium 131 mmol/L (137-145)
== END ==
PROVIDERS: PCP Family Medicine; Visit Provider Family Medicine
DX: R60.9 Edema, unspecified (principal)
CPT/HCPCS: 36415; 80048; 83735

== ENCOUNTER → 2018-08-26 11:50 | Outpatient (CLI) | payer MEDICARE, SELFPAY ==
[2018-05-04 11:42] VITALS: BMI 27.0
[2018-08-26 12:14] LABS: Add Manual Diff / Slide Review NO; Basophils Absolute Auto 100 /uL (0-100); Basophils Percent Auto 0.8 % (0-2); Eosinophils Absolute Auto 100 /uL (0-450); Eosinophils Percent Auto 1.1 % (2-4); Hematocrit 29.4 % (36-46); Lymphocytes Absolute Auto 900 /uL (1100-4500); Lymphocytes Percent Auto 11.7 % (25-40); Mean Corpuscular HGB Conc 34.1 % (30-36); Mean Corpuscular Hemoglobin 26.2 PG (26-34); Mean Corpuscular Volume 76.9 fL (80-100); Monocytes Absolute Auto 600 /uL (0-900); Monocytes Percent Auto 7.9 % (3-14); Neutrophils Absolute Auto 6000 /uL (1500-7000); Neutrophils Percent Auto 78.5 % (50-75); Platelet Count 262 X10^3/uL (150-400); Red Blood Cell Count 3.82 X10^6/uL (4.0-5.2); Red Cell Distribution Width 16.1 % (11.6-14.8); White Blood Cell Count 7.6 X10^3/uL (4.5-11.0)
[2018-08-26 12:31] LABS: BUN Creatinine Ratio 19.5 (6-22); Blood Urea Nitrogen 72 mg/dL (7-17); Calcium 9.3 mg/dL (8.4-10.2); Carbon Dioxide 33 mmol/L (22-32); Chloride 84 mmol/L (98-107); Estimated Glomerular Filt Rate 11.8 mL/min (>60); Glucose 119 mg/dL (80-110); HEMOLYSIS < 15 (0-50); Sodium 132 mmol/L (137-145)
[2018-08-26 12:56] LABS: Potassium 2.7 mmol/L (3.4-5.1)
== END ==
PROVIDERS: Student in an Organized Health Care Education/Training Program; PCP Family Medicine; Visit Provider Family Medicine
DX: E87.6 Hypokalemia (principal); I10 Essential (primary) hypertension; R60.9 Edema, unspecified
CPT/HCPCS: 36415; 80048; 85025

== ENCOUNTER → 2018-12-16 14:42 | Outpatient (CLI) | payer MEDICARE, SELFPAY ==
[2018-05-04 11:42] VITALS: BMI 27.0
[2018-12-16 15:24] LABS: Add Manual Diff / Slide Review NO; Basophils Absolute Auto 0 /uL (0-100); Basophils Percent Auto 0.4 % (0-2); Eosinophils Absolute Auto 100 /uL (0-450); Eosinophils Percent Auto 1.5 % (2-4); Hematocrit 35.1 % (36-46); Hemoglobin 11.9 g/dL (12.0-16.0); Lymphocytes Absolute Auto 900 /uL (1100-4500); Lymphocytes Percent Auto 13.2 % (25-40); Mean Corpuscular HGB Conc 33.9 % (30-36); Mean Corpuscular Volume 85.6 fL (80-100); Monocytes Absolute Auto 500 /uL (0-900); Monocytes Percent Auto 7.1 % (3-14); Neutrophils Absolute Auto 5300 /uL (1500-7000); Neutrophils Percent Auto 77.8 % (50-75); Platelet Count 212 X10^3/uL (150-400); Red Cell Distribution Width 14.5 % (11.6-14.8); White Blood Cell Count 6.8 X10^3/uL (4.5-11.0)
[2018-12-16 15:54] LABS: BUN Creatinine Ratio 14.7 (6-22); Blood Urea Nitrogen 22 mg/dL (7-17); Carbon Dioxide 33 mmol/L (22-32); Chloride 92 mmol/L (98-107); Estimated Glomerular Filt Rate 33.5 mL/min (>60); Glucose 108 mg/dL (80-110); HEMOLYSIS < 15 (0-50); Sodium 134 mmol/L (137-145)
[2018-12-16 16:01] LABS: Hemoglobin A1C% w Est Avg Glu 5.2 % (4.0-6.0)
== END ==
PROVIDERS: PCP Family Medicine; Visit Provider Family Medicine
DX: I10 Essential (primary) hypertension (principal)
CPT/HCPCS: 36415; 80048; 83036; 85025

== ENCOUNTER → 2020-08-23 16:27 | Outpatient (CLI) | payer MEDICARE, SELFPAY ==
[2020-05-10 16:13] VITALS: BMI 27.0
[2020-08-23 17:13] LABS: Add Manual Diff / Slide Review NO; Basophils Absolute Auto 100 /uL (0-100); Basophils Percent Auto 0.9 % (0-2); Eosinophils Absolute Auto 500 /uL (0-450); Eosinophils Percent Auto 7.8 % (2-4); Hematocrit 32.4 % (36-46); Hemoglobin 10.5 g/dL (12.0-16.0); Lymphocytes Absolute Auto 900 /uL (1100-4500); Mean Corpuscular HGB Conc 32.5 % (30-36); Mean Corpuscular Hemoglobin 26.5 PG (26-34); Mean Corpuscular Volume 81.3 fL (80-100); Monocytes Absolute Auto 500 /uL (0-900); Monocytes Percent Auto 8.1 % (3-14); Neutrophils Absolute Auto 4200 /uL (1500-7000); Neutrophils Percent Auto 68.2 % (50-75); Platelet Count 249 X10^3/uL (150-400); Red Blood Cell Count 3.98 X10^6/uL (4.0-5.2); Red Cell Distribution Width 19.3 % (11.6-14.8); White Blood Cell Count 6.1 X10^3/uL (4.5-11.0)
[2020-08-23 18:08] LABS: Alanine Aminotransferase 12 IU/L (<35); Albumin 3.5 g/dL (3.5-5.0); Alkaline Phosphatase 91 U/L (38-126); Aspartate Aminotransferase 27 IU/L (14-36); BUN Creatinine Ratio 13.7 (6-22); Bilirubin Total 0.3 mg/dL (0.2-1.3); Blood Urea Nitrogen 21 mg/dL (7-17); Calcium 8.8 mg/dL (8.4-10.2); Carbon Dioxide 33 mmol/L (22-32); Chloride 99 mmol/L (98-107); Cholesterol 174 mg/dL (140-199); Estimated Glomerular Filt Rate 32.6 mL/min (>60); Globulin 3.5 g/dL (1.7-4.1); Glucose 106 mg/dL (80-110); HDL Cholesterol 55 mg/dL (40-60); HEMOLYSIS < 15 (0-50); LDL Cholesterol Calculated 98 mg/dL (<100); Potassium 3.7 mmol/L (3.4-5.1); Sodium 138 mmol/L (137-145); Triglycerides 107 mg/dL (35-150)
== END ==
PROVIDERS: PCP Family Medicine; Referring Provider Family Medicine; Visit Provider Family Medicine
DX: I10 Essential (primary) hypertension (principal); I25.10 Atherosclerotic heart disease of native coronary artery without angina pectoris; N17.9 Acute kidney failure, unspecified; N18.9 Chronic kidney disease, unspecified; Z95.5 Presence of coronary angioplasty implant and graft
CPT/HCPCS: 36415; 80053; 80061; 85025

== ENCOUNTER → 2020-11-16 13:49 | Outpatient (CLI) | payer MEDICARE, SELFPAY ==
[2020-05-10 16:13] VITALS: BMI 27.0
== END ==
PROVIDERS: Family Provider Family Medicine; PCP Family Medicine; Referring Provider Family Medicine; Visit Provider Family Medicine
DX: L89.613 Pressure ulcer of right heel, stage 3 (principal); L89.623 Pressure ulcer of left heel, stage 3; L08.9 Local infection of the skin and subcutaneous tissue, unspecified; L84 Corns and callosities; Z74.09 Other reduced mobility; I73.9 Peripheral vascular disease, unspecified; R63.0 Anorexia
CPT/HCPCS: 87070; 87075; 87077; 87186; 87205; 97597; 99204; 99214

== ENCOUNTER → 2020-11-23 13:53 | Outpatient (CLI) | payer MEDICARE, SELFPAY ==
[2020-05-10 16:13] VITALS: BMI 27.0
== END ==
PROVIDERS: Family Provider Family Medicine; PCP Family Medicine; Referring Provider Family Medicine; Visit Provider Family Medicine
DX: L89.623 Pressure ulcer of left heel, stage 3 (principal); L08.9 Local infection of the skin and subcutaneous tissue, unspecified; L89.613 Pressure ulcer of right heel, stage 3
CPT/HCPCS: 93923

== ENCOUNTER → 2020-12-07 13:10 | Outpatient (CLI) | payer MEDICARE, SELFPAY ==
[2020-05-10 16:13] VITALS: BMI 27.0
== END ==
PROVIDERS: Family Provider Family Medicine; PCP Family Medicine; Referring Provider Family Medicine; Visit Provider Family Medicine
DX: L89.623 Pressure ulcer of left heel, stage 3 (principal); Z74.09 Other reduced mobility; I73.9 Peripheral vascular disease, unspecified; R63.0 Anorexia
CPT/HCPCS: 93923; 99213

== ENCOUNTER → 2020-12-21 13:05 | Outpatient (CLI) | payer MEDICARE, SELFPAY ==
[2020-05-10 16:13] VITALS: BMI 27.0
== END ==
PROVIDERS: Family Provider Family Medicine; PCP Family Medicine; Referring Provider Family Medicine; Visit Provider Family Medicine
DX: R63.4 Abnormal weight loss (principal); E46 Unspecified protein-calorie malnutrition; R63.0 Anorexia; Z74.09 Other reduced mobility
CPT/HCPCS: 99213

== ENCOUNTER → 2021-11-02 15:39 | Outpatient (CLI) | payer MEDICARE, SELFPAY ==
[2020-05-10 16:13] VITALS: BMI 27.0
--- NOTE | 2021-11-02 15:41 | DI.RAD.S_ITS ---
PROCEDURE: XR LUMBAR SPINE 2-3V INDICATIONS: chronic low back pain with severe foot pain TECHNIQUE: 3 views of the lumbar spine were acquired. COMPARISON: [facility], MR, MR ANGIO RUNOFF, 07/24/2018, 15:15. [facility], CR, XR CHEST 1 VIEW, 04/14/2020, 19:13. [facility], CR, XR CHEST 1 VIEW, 05/13/2018, 15:53. FINDINGS: Bones: 5 [id number] vertebrae are present. There is normal bony alignment. Degenerative endplate changes, loss of disc height and bilateral facet arthrosis at L3-4 through L5-S1 levels are seen. Age indeterminate anterior wedge compression deformity involving superior endplate of L1 is seen with up to 20 percent loss of L1 vertebral body height anteriorly.. No suspicious bony lesions. Soft tissues: Overlying bowel gas pattern is normal. No suspicious soft tissue calcifications. 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 Age indeterminate anterior wedge compression deformity at L1 level as above. No other compression fracture or significant listhesis. Dictated by: Quan Garcia M.D. on 11/02/2021 at 15:23 Approved by: Quan Garcia M.D. on 11/02/2021 at 15:29
[2021-11-02 17:47] LABS: Add Manual Diff / Slide Review NO; Basophils Absolute Auto 0 /uL (0-100); Basophils Percent Auto 0.6 % (0-2); Eosinophils Absolute Auto 300 /uL (0-450); Eosinophils Percent Auto 3.8 % (2-4); Hematocrit 35.2 % (36-46); Hemoglobin 11.6 g/dL (12.0-16.0); Lymphocytes Absolute Auto 1000 /uL (1100-4500); Lymphocytes Percent Auto 14.2 % (25-40); Mean Corpuscular HGB Conc 32.9 % (30-36); Mean Corpuscular Hemoglobin 26.3 PG (26-34); Monocytes Absolute Auto 500 /uL (0-900); Monocytes Percent Auto 7.8 % (3-14); Neutrophils Absolute Auto 5000 /uL (1500-7000); Neutrophils Percent Auto 73.6 % (50-75); Platelet Count 194 X10^3/uL (150-400); Red Cell Distribution Width 14.5 % (11.6-14.8); White Blood Cell Count 6.8 X10^3/uL (4.5-11.0)
[2021-11-02 18:00] LABS: Alanine Aminotransferase 11 IU/L (<35); Albumin 4.1 g/dL (3.5-5.0); Albumin Globulin Ratio 1.1 (1.0-2.8); Alkaline Phosphatase 76 U/L (38-126); Aspartate Aminotransferase 25 IU/L (14-36); BUN Creatinine Ratio 14.9 (6-22); Bilirubin Total 0.7 mg/dL (0.2-1.3); Blood Urea Nitrogen 22 mg/dL (7-17); Calcium 9.1 mg/dL (8.4-10.2); Carbon Dioxide 30 mmol/L (22-32); Chloride 101 mmol/L (98-107); Estimated Glomerular Filt Rate 35 mL/min (>60); Globulin 3.6 g/dL (1.7-4.1); Glucose 102 mg/dL (80-110); HEMOLYSIS < 15 (0-50); Potassium 3.8 mmol/L (3.4-5.1); Sodium 138 mmol/L (137-145); Total Protein 7.7 g/dL (6.3-8.2)
== END ==
PROVIDERS: Family Provider Family Medicine; PCP Family Medicine; Referring Provider Family Medicine; Visit Provider Family Medicine
DX: M51.16 Intervertebral disc disorders with radiculopathy, lumbar region (principal); M47.26 Other spondylosis with radiculopathy, lumbar region; M47.27 Other spondylosis with radiculopathy, lumbosacral region; M43.8X6 Other specified deforming dorsopathies, lumbar region; D64.9 Anemia, unspecified; N17.9 Acute kidney failure, unspecified; N18.31 Chronic kidney disease, stage 3a; R60.9 Edema, unspecified; G89.4 Chronic pain syndrome
CPT/HCPCS: 36415; 72100; 80053; 85025; C9803

== ENCOUNTER → 2021-11-20 13:56 | Outpatient (CLI) | payer MEDICARE, SELFPAY ==
[2020-05-10 16:13] VITALS: BMI 27.0
--- NOTE | 2021-11-20 14:06 | DI.MRI.S_ITS ---
PROCEDURE: MR LUMBAR SPINE WO CON INDICATIONS: chronic low back pain with severe foot pain TECHNIQUE: Noncontrast sagittal T1 spin echo and T2 fast echo, sagittal STIR, and T2 fast spin echo through the lumbar spine. In cases with scoliosis, additional coronal T2 fast spin echo may be performed. COMPARISON: [facility], CR, XR LUMBAR SPINE 2-3V, 11/02/2021, 15:57. [facility], CT, ABDOMEN/PELVIS WITH CONTRAST, 04/14/2009, 14:20. FINDINGS: Image quality: This examination is limited by involuntary motion artifact. Alignment and Curvature: There is normal bony alignment. Bone Marrow: Marrow is of normal overall signal. No acute vertebral body compression fractures. At the L1 level, there is an anterior wedge deformity seen, with approximately 30% loss of height. This is similar to the prior plain film. Spinal Cord: Conus medullaris terminates at the L1 level. Visualized cord demonstrates normal signal and size. Paraspinous Soft Tissues: No paravertebral masses. T12-L1: Normal appearance. L1-L2: Normal appearance. L2-L3: The disc height is well-preserved. Loss of disc signal is seen at this level. Mild generalized disc bulge is seen. Mild to moderate bilateral neural foraminal narrowing can be seen. Minimal central canal narrowing is seen. L3-L4: The disc height is well-preserved. Loss of disc signal is seen at this level. Moderate generalized disc bulge is seen. Moderate facet joint hypertrophy is seen. Associated hypertrophy of the ligamentum flavum can be seen. There is moderate right-sided and at least moderate left-sided neural foraminal narrowing. Moderate central canal narrowing is seen. L4-L5: The disc height is well-preserved. Loss of disc signal is seen at this level. Moderate disc bulge is seen, with a central disc extrusion. At least moderate facet hypertrophy is seen. Associated hypertrophy of the ligamentum flavum can be seen. There is moderate to severe bilateral neural foraminal narrowing seen, with an associated a degree of compression seen upon the exiting nerve roots. Moderate to severe central canal narrowing is also seen. L5-S1: [id number] loss of disc height and disc signal can be seen. Moderate generalized disc bulge is seen. There is a superimposed central disc protrusion. Mild to moderate facet hypertrophy is seen. There is moderate to severe bilateral neural foraminal narrowing seen, with an associated a degree of compression seen upon the exiting nerve roots. Mild central canal narrowing is seen. IMPRESSION: Lumbar spine degenerative changes are seen, which are worst at the L4-L5 level, where there is moderate to severe bilateral neural foraminal narrowing and moderate to severe central canal narrowing seen. Dictated by: Yohannes Sanchez M.D. on 11/20/2021 at 15:31 Approved by: Yohannes Sanchez M.D. on 11/20/2021 at 15:35
== END ==
PROVIDERS: Family Provider Family Medicine; PCP Family Medicine; Referring Provider Family Medicine; Visit Provider Family Medicine
DX: M47.26 Other spondylosis with radiculopathy, lumbar region (principal); G89.4 Chronic pain syndrome; M48.061 Spinal stenosis, lumbar region without neurogenic claudication
CPT/HCPCS: 72148

== ENCOUNTER → 2022-01-22 13:49 | Outpatient (CLI) | payer MEDICARE, SELFPAY ==
[2020-05-10 16:13] VITALS: BMI 27.0
== END ==
PROVIDERS: Family Provider Family Medicine; PCP Family Medicine; Referring Provider Family Medicine; Visit Provider Family Medicine
DX: L89.623 Pressure ulcer of left heel, stage 3 (principal); I87.2 Venous insufficiency (chronic) (peripheral); L97.822 Non-pressure chronic ulcer of other part of left lower leg with fat layer exposed; L23.9 Allergic contact dermatitis, unspecified cause; L08.9 Local infection of the skin and subcutaneous tissue, unspecified; G60.9 Hereditary and idiopathic neuropathy, unspecified; Z74.09 Other reduced mobility; G89.29 Other chronic pain
CPT/HCPCS: 11042; 87070; 87075; 87205; 99214

== ENCOUNTER → 2022-05-06 13:10 | Outpatient (CLI) | payer MEDICARE, SELFPAY ==
[2020-05-10 16:13] VITALS: BMI 27.0
== END ==
PROVIDERS: Family Provider Family Medicine; PCP Family Medicine; Referring Provider Family Medicine; Visit Provider Surgery
DX: I87.2 Venous insufficiency (chronic) (peripheral) (principal); L89.623 Pressure ulcer of left heel, stage 3; L97.822 Non-pressure chronic ulcer of other part of left lower leg with fat layer exposed; L97.322 Non-pressure chronic ulcer of left ankle with fat layer exposed; G62.9 Polyneuropathy, unspecified; I73.9 Peripheral vascular disease, unspecified; M79.605 Pain in left leg
CPT/HCPCS: 11042; 87070; 87075; 87077; 87147; 87186; 87205; 99213; 99214

== ENCOUNTER → 2022-05-13 13:57 | Outpatient (CLI) | payer MEDICARE, SELFPAY ==
[2020-05-10 16:13] VITALS: BMI 27.0
== END ==
PROVIDERS: Family Provider Family Medicine; PCP Family Medicine; Referring Provider Family Medicine; Visit Provider Surgery
DX: I87.2 Venous insufficiency (chronic) (peripheral) (principal); L89.623 Pressure ulcer of left heel, stage 3; L97.822 Non-pressure chronic ulcer of other part of left lower leg with fat layer exposed; L97.322 Non-pressure chronic ulcer of left ankle with fat layer exposed; G62.9 Polyneuropathy, unspecified; I73.9 Peripheral vascular disease, unspecified; R60.0 Localized edema
CPT/HCPCS: 11042; 97597

== ENCOUNTER → 2022-05-20 13:46 | Outpatient (CLI) | payer MEDICARE, SELFPAY ==
[2020-05-10 16:13] VITALS: BMI 27.0
== END ==
PROVIDERS: Family Provider Family Medicine; PCP Family Medicine; Referring Provider Family Medicine; Visit Provider Surgery
DX: I87.2 Venous insufficiency (chronic) (peripheral) (principal); L89.623 Pressure ulcer of left heel, stage 3; L97.822 Non-pressure chronic ulcer of other part of left lower leg with fat layer exposed; L97.322 Non-pressure chronic ulcer of left ankle with fat layer exposed; G62.9 Polyneuropathy, unspecified; I73.9 Peripheral vascular disease, unspecified
CPT/HCPCS: 99213

== ENCOUNTER → 2022-05-31 10:12 | Outpatient (CLI) | payer MEDICARE, SELFPAY ==
[2020-05-10 16:13] VITALS: BMI 27.0
== END ==
PROVIDERS: Family Provider Family Medicine; PCP Family Medicine; Referring Provider Family Medicine; Visit Provider Surgery
DX: I87.2 Venous insufficiency (chronic) (peripheral) (principal); L97.822 Non-pressure chronic ulcer of other part of left lower leg with fat layer exposed; L97.322 Non-pressure chronic ulcer of left ankle with fat layer exposed; L89.623 Pressure ulcer of left heel, stage 3; G62.9 Polyneuropathy, unspecified
CPT/HCPCS: 97597; 99213

== ENCOUNTER → 2022-06-11 13:23 | Outpatient (CLI) | payer MEDICARE, SELFPAY ==
[2020-05-10 16:13] VITALS: BMI 27.0
== END ==
PROVIDERS: Family Provider Family Medicine; PCP Family Medicine; Referring Provider Family Medicine; Visit Provider Surgery
DX: L97.822 Non-pressure chronic ulcer of other part of left lower leg with fat layer exposed (principal); I87.2 Venous insufficiency (chronic) (peripheral); G62.9 Polyneuropathy, unspecified
CPT/HCPCS: 11042; 99212

== ENCOUNTER → 2022-06-25 12:54 | Outpatient (CLI) | payer MEDICARE, SELFPAY ==
[2020-05-10 16:13] VITALS: BMI 27.0
== END ==
PROVIDERS: Family Provider Family Medicine; PCP Family Medicine; Referring Provider Family Medicine; Visit Provider Surgery
DX: I87.2 Venous insufficiency (chronic) (peripheral) (principal); L97.822 Non-pressure chronic ulcer of other part of left lower leg with fat layer exposed; G60.9 Hereditary and idiopathic neuropathy, unspecified
CPT/HCPCS: 97597; 99213

== ENCOUNTER → 2022-07-09 12:49 | Outpatient (CLI) | payer MEDICARE, SELFPAY ==
[2020-05-10 16:13] VITALS: BMI 27.0
--- NOTE | 2022-07-09 | OV.WND_ITS ---
Progress Note Details Patient Name: Zaria Ruby Patient Number: [id number] Clinician: Marla Qiu Patient Date of : 1940 Physician / [employer] Tractor Operator: Pelon Avila Patient SUBJECTIVE Chief Complaint This information was obtained from the patient, chart Ulcer o left leg Allergies No Known Drug Allergies HPI This information was obtained from the patient The following HPI elements were documented for the patient's wound: Location: LLE Duration: 01/19 Context: venous Associated Signs and Symptoms: none The patient is an 82-year-old female with non diabetic neuropathy and PAD who returns today for follow up of multiple ulcerations of the left lower extremity. She has a four year history of an intermittent left heel pressure ulcer that recurred December 2021. She also developed a venous ulcer posterior left calf about the same time and developed another ulcer lateral left ankle. The left heel and left lateral ankle ulcers were noted to be healed on previous visit. The patient has been receiving dressing changes with Hydrofera blue classic with Duoderm with Tubigrip for compression. The patient denies any unusual pain or discomfort. The patient recently noted a rash with itching on the dorsum of her left foot that resolved after treatment with Lotrisone. She is able to ambulate with the use of a cane and sometimes uses a walker. Past history is significant for bilateral lower extremity angioplasty July 2018. Arterial Doppler from October 2020 showed no evidence of arterial insufficiency. ABIs done in clinic were 1.04 on the left. No changes in overall health since last visit. The patient has received her Velcro wraps but has not yet started using them. The patient would like to transfer her care to [facility] since it is closer to her home. Labs: 11/02/21: WBC 6.8, hemoglobin 11.6, HCT 35.2, electrolytes normal, GFR 35, BUN 22, creatinine 1.48 Medical History Family History This information was obtained from the patient, chart Cancer - Mother, Tuberculosis - Father Social History This information was obtained from the patient, chart Never smoker, Alcohol Use - Former, Caffeine Use - once in a while, Lives in - home with daughter, Marital Status - , Retired Medical History This information was obtained from the patient, chart Patient has a medical history of: Anemia Breast cancer (left) Depression Gastro Esoph. Reflux Disease (GERD) Edema (bilateral lower extremities ) Hypertension Hyperlipidemia Kidney infection Numbness and tingling of both feet Coronary Artery Disease (CAD) (NSTEMI; Stents x 3 in 2018) CKD IIIb Contrast dye induced nephropathy Back Pain Chronic heel ulcer Chronic pain syndrome History of wound Infection Surgical History This information was obtained from the patient, chart Patient has a surgical history of: Hand surgery Hysterectomy Total right hip arthroplasty Tonsillectomy Mastectomy left breast (2008) Coronary Stent placement (2005 and 2020) Right total knee replacement Review of Systems (ROS) This information was obtained from the patient Complaints and Symptoms Patient complains of: Co-Morbid Conditions: Neuropathy , Peripheral Arterial Disease Prior Wound History: Drainage, Pain Patient denies complaints or symptoms related to: Cardiovascular (Central): Chest Pain, Dyspnea on Exertion Constitutional Symptoms (General Health): Chills, Fever, Loss of Appetite Prior Wound History: Bleeding, Erythema, Malodor Respiratory: Cough, Shortness of Breath OBJECTIVE Wound Assessment(s) Wound #5 Left, Posterior Leg is a chronic Full Thickness Venous Ulcer and has received a status of Not Healed. Initial wound encounter measurements are 1cm length x 1.3cm width x 0.1cm depth, with an area of 1.3 sq cm and a volume of 0.13 cubic cm. Adipose is exposed. No tunneling has been noted. No sinus tract has been noted. No undermining has been noted. There is a small amount of serous drainage noted which has no odor. The patient reports a wound pain of level 0/10. The wound margin is attached. Wound bed has No epithelialization, No eschar, Yes slough, Yes pink, firm granulation. The periwound skin color is normal. The periwound skin exhibited: Edema. The periwound skin did not exhibit: Excoriation, Moist, Maceration. The temperature of the periwound skin is WNL. Local Pulse is Doppler. Vitals Height/Length: 62 in (157.48 cm), Weight: 130 lbs (59.09 kgs), BMI: 23.8, Temperature: 98.3 F (36.83 C), Pulse: 82 bpm, Respiratory Rate: 16 breaths/min, Pulse Oximetry: 98 %. Physical Exam Constitutional Vital signs reviewed and noted. Well developed, well nourished, and in no acute distress. Alert and oriented x3. Respiratory: Even respirations without use of accessory muscles. No intercoastal retractions noted. Even and non labored respiration. Integumentary (Hair, Skin) See wound assessment. Neurological: decreased lower extremity sensation. Psychiatric: Orientation to time, place and person: Normal affect with normal thought pattern. Lower Extremity Assessment Edema Assessment: Left Extremity: Edema is present Compression Device In Use: Yes Device Used Correctly: Yes Compression Device Used: Tubigrip or Tubifast Calf Measurement 28 cm from heel base with left measurement of 33.5 cm Ankle Measurement 10 cm from heel base with left measurement of 23.5 cm Foot Measurement 10 cm from great toe with left measurement of 21 cm Right Extremity: Edema is not present Compression Device In Use: No Calf Measurement 28 cm from heel base Ankle Measurement 10 cm from heel base Foot Measurement 10 cm from great toe Vascular Assessment: Left Extremity colors, hair growth, and conditions: Extremity Color: Pigmented Hair Growth on Extremity: No Temperature of Extremity: Warm Capillary Refill: < 3 seconds Erythema: Yes Hyperpigmentation: Yes Lipodermatosclerosis: No Right Extremity colors, hair growth, and conditions: Extremity Color: Pigmented Hair Growth on Extremity: No Temperature of Extremity: Warm Capillary Refill: < 3 seconds Erythema: No Hyperpigmentation: Yes Lipodermatosclerosis: No Additional Information Limited to breakdown of skin: No ASSESSMENT Active Problems ICD-10 (Encounter Diagnosis) L89.623 - Pressure ulcer of left heel, stage 3 (Encounter Diagnosis) L97.822 - Non-pressure chronic ulcer of other part of left lower leg with fat layer exposed (Encounter Diagnosis) I87.2 - Venous insufficiency (chronic) (peripheral) (Encounter Diagnosis) G62.9 - Polyneuropathy, unspecified (Encounter Diagnosis) R21 - Rash and other nonspecific skin eruption General Notes: ulcer left posterior calf measurements improved, slough and biofilm noted ulcer lateral left ankle healed pressure ulcer left heel healed the following factors have been identified it may impair wound healing: Devitalized tissue Suboptimal granulation tissue Bioburden Ongoing local pressure Venous insufficiency Neuropathy Reduced mobility Advanced age Goals: removed devitalized tissue Remove and prevent biofilm Improve moisture balance Minimize edema Pressure offloading Improve adherence Wound closure Plan: debridement, continue dressing changes with Hydrofera blue classic and DuoDerm with Tubigrip for compression. Encouraged the patient to use Velcro wraps. PROCEDURES Wound #5 Wound #5 (Venous Ulcer) is located on the left, posterior leg. A skin/subcutaneous tissue level surgical debridement with a total area debrided of 1.3 sq cm was performed by Pelon Avila MD. Subcutaneous was removed along with devitalized tissue: biofilm, exudate, and slough. The following instrument(s) were used: curette. Pain control was achieved using EMLA lidocaine/prilocaine 2.5%/2.5%. A time out was conducted prior to the start of the procedure. A minimal amount of bleeding was controlled with pressure. The procedure was tolerated well with a pain level of 0 throughout and a pain level of 0 following the procedure. Post Debridement Measurements: 1cm length x 1.3cm width x 0.2cm depth; with an area of 1.3 sq cm and a volume of 0.26 cubic cm; Additional Information Muscle fascia or bone removed and sent to pathology?: No PLAN Wound Orders: Wound #5 Left, Posterior Leg Anesthetic Topical Xylocaine to wound bed Hygiene May shower with wound protected, using a cast protector or plastic bag and tape Cleanser Cleanse Wound with normal saline Dressings Primary dressing - Hydrofera blue Cover and secure with - Bordered silicone foam Change Dressing - Three times per week. (Friday, Friday, Friday) Physician Review: Reviewed and evaluated labs. Discussed the Plan of Care @ bedside with - the patient Reviewed hospital records. I, as the physician, have reviewed the orders scribed by the center RN's and agree. Additional Orders: Compression/Edema Control Elevation of leg(s) above the level of the heart when sitting Avoid prolonged standing in one place Knee-high gradient compression stockings Compression Type: - Tubular compression stockings size D to left leg. Please wear your Farrow wrap at home. Dietary Increased protein Supplement with - Protein shakes of your liking. Some options include Pure Protein and Ensure. Follow-Up Appointments Other information: If you develop fever, chills, increased pain, drainage, redness or swelling please call our office. If after hours, respond to the ER. Should you experience any significant changes in your wound(s) or have any questions regarding your home care instructions please contact the wound center @ [phone]. If after hours, contact your primary care physician or go to the hospital emergency room. Discharge from Outpatient Services. - We will refer you to [facility] per request Scribing Attestation I attest, as the nurse, that I scribed these orders for the physician. Plan of Care: 01. ENSURE/ESTABLISH OPTIMAL BLOOD FLOW : - Complete lower extremity assessment - Perform non-invasive vascular testing (i.e. STEVEN) and document findings. Consider repeating when wound healing <40% after 30 days of wound care. 02. ASSESS FOR/TREAT INFECTION : - Evaluate for signs and symptoms of infection and document findings. 03. DEBRIDE WEEKLY OR MORE OFTEN PRN : - Evaluate patient in center weekly to assess wound bed and margins for need for debridement. - Mechanical debridement: Stimulate and/or maintain acute phase of wound healing by reducing bacterial burden and devitalized/non-viable tissue. - Debridement by any method to remove devitalized/necrotic tissue to promote healing and prevent further complications. Goal is to stimulate and/or maintain acute phase of wound healing by reducing bacterial burden and devitalized/non-viable tissue. 04. OPTIMIZE GLUCOSE CONTROL and NUTRITION : - Complete a nutrition risk assessment. 05. OFFLOADING PLAN : - Evaluate plan for offloading - Advise patient to offload the foot ulcer. (i.e. half shoe, surgical shoe, insert, custom shoe, felt and foam, cam walker, multipodus splint, total contact cast, bi-valve cast, posterior splint). 06. OPTIMIZE HOST FACTORS: - Assess and review patient history for wound etiology, co-morbid conditions, medication regime, and smoking history. - Assess lifestyle factors such as smoking, alcohol/drug abuse, eating habits/malnutrition and activity level. 07. DRESSING SELECTION : - Evaluate for dressing-related factors, such as availability, wear time, adaptability and use to better optimize wound healing and patient compliance. - Choose topical treatments and/or dressing based on wound type and appearance, periwound skin condition, wound size and depth, anatomic location, volume of exudate, edema in the lower extremities, and risk or presence of infection. 08. ADVANCED MODALITIES : - Set treatment goals according to patient and/or caregiver???s ability/ compliance. - Re-evaluate plan of care if no evidence of healing (40% in 4 weeks). 09. FALL PREVENTION : - Complete fall assessment. - Inform patient and family of risk of falling and discuss prevention strategies. 10. PAIN MANAGEMENT : - Complete pain assessment - Prepare patient to set reasonable expectations prior to procedure. 11. MEASURABLE GOALS for Wound Healing and/or Hyperbaric Oxygen Therapy : - Decrease pain - Wound Closure - Reduce edema 12. DURATION/FREQUENCY of Wound Care Visits : - 1x weekly for 30 days Electronic Signature(s) Signed By: Date: Pelon Avila MD 07/09/2022 14:18:53 (PT) Entered By: Pelon Avila MD on 07/09/2022 14:18:29 (PT)
== END ==
PROVIDERS: Family Provider Family Medicine; PCP Family Medicine; Referring Provider Family Medicine; Visit Provider Surgery
DX: I87.2 Venous insufficiency (chronic) (peripheral) (principal); L97.822 Non-pressure chronic ulcer of other part of left lower leg with fat layer exposed; R60.0 Localized edema; G60.9 Hereditary and idiopathic neuropathy, unspecified
CPT/HCPCS: 11042; 99212; 99213